=== PATIENT | female | born 2000 | race Caucasian/White ===

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

== ENCOUNTER → 2023-03-06 | Emergency (ER) | payer OTHER ==
--- OUTSIDE RECORDS SUMMARY | 2023-03-06 14:07 | XMS REPORT | Continuity of Care Document ---
Author Name Unknown Address [address] [facility] [address] [place] [id number] [facility] thconnect Address [address] [facility]. [address] [place] [address] Care Team Providers Care Automation Driver Name Role Phone Mine Goldberg Primary Care Physician JEET WAYNE Attending Clinician Unavailable Josee Pineda Attending Clinician + Terra Archer RN Attending Clinician Unavailab MAKEDA Longo Attending Clinician Unavailable Makeda West MD Attending Clinician [phone] JOSEE BILLY Attending Clinician Unavail able Doctor Unassigned, [place] Attending Clinician U gavinailable HELENA MELGAR Attending Clinician UnavailBHANU [place] Attending Clinician Unavaila ble LAB59 Attending Clinician Unavailable Lam May MD Attending Clinician LAM MAY Attending Clinician Unavailable Lab, Ang - Db Attending Clinician Unavailable KELLY VARGAS Attending Clinician Unavailable 2, [facility] Attending Clinician Unavailable EDMOND CHUN Attending Clinician Unavailable Payers Payer Name Policy Type Policy Number Effective Date Expirati on Date Source [facility] DUAL COMP HMO D SNP [id number] 2022 00:00:00 [facility] [place] STAR PLUS [id number] 2022 00:00:00 [employer] [place]OLD [place] 33 D-SNP OA 7 [id number] 2022 00:00:00 Problems Condition Name Condition Details Condition Category Status Onset Date Resolution Date Last Treatment Date Treating Clinician Comments Source Atypical squamous cells of undetermin ed significan ce (ASCUS) on Papanicola ou smear of cervix Atypical squamous cells of undetermin ed significan ce (ASCUS) on Papanicola ou smear of cervix Disease Active 09-09 00:00: 00 Overview: Formattin g of this note might be different from the original. Repeat pap in 1 year 09/2023 [facility] Other depression Other depression Disease Active 08-23 00:00: 00 [facility] Dysautonom ia Dysautonom ia Disease Active 08-23 00:00: 00 [facility] Subclinica l hypothyroi dism Subclinica l hypothyroi dism Disease Active 03-02 00:00: 00 Overview: Formattin g of this note might be different from the original. Dx 01/2013 [facility] Crohn's disease Crohn's disease Disease Active 2012-02 00:00: 00 [facility] Allergies, Adverse Reactions, Alerts Allergy Name Allergy Type Status Severity Reaction(s) Onset Date Inactive Date Treating Clinician Comments Source NO KNOWN ALLERGIE S Drug Class Active [facility] Social History Social Habit Start Date Stop Date Quantity Comments Source [facility] Exposure to SARS-CoV-2 (event) Not sure [facility] History of tobacco use Passive smoker Denisa mariano - External Tobacco use and exposure 2022-08-23 00:00:00 2022-08-23 00:00:00 Smokeless tobacco non-user [facility] Tobacco Comment 2022-08-23 00:00:00 2022-08-23 00:00:00 mom and dad smoke outside house [facility] History of Social function 2022-08-23 00:00:00 2022-08-23 00:00:00 [facility] Alcohol Comment 2022-08-23 00:00:00 2022-08-23 00:00:00 1-3 drinks in a span of 3 days, wine/beer [facility] Alcohol intake 2022-05-19 00:00:00 2022-05-19 00:00:00 Lifetime non-drinker (finding) Denisa Olivo Sex Assigned At 2000 00:00:00 2000 00:00:00 Denisa Olivo Smoking Status Start Date Stop Date Source Never smoked tobacco [facility] Medications Ordered Medication Name Filled Medication Name Start Date Stop Date Current Medication? Ordering Clinician Indication Dosage Frequency Signature (SIG) Comments Components Source Norethin-Et h Estrad-Fe Biphas (Lo Loestrin Fe) 1 MG-10 MCG / 10 MCG oral Tablet 05-19 00:00: 00 Yes [id number] 1{tbl} Take 1 tablet by mouth daily Denisa cardenas Carbamide Peroxide 6.5 % otic Solution 05-19 00:00: 00 05-24 04:59 :00 No [id number] 5[drp] Place 5 drops into both ears 2 times daily for 4 days Denisa cardenas Famotidine 40 MG oral Tablet 04-09 00:00: 00 Yes 40mg Take 1 tablet (40 mg total) by mouth daily Denisa cardenas levothyroxi ne 25 mcg tablet 2020-02 00:00: 00 Yes [id number] 25ug Take 1 tablet by mouth every morning. [facility] levothyroxi ne 25 mcg tablet 2020-02 00:00: 00 Yes [id number] 25ug Take 1 tablet by mouth every morning. [facility] levothyroxi ne 25 mcg tablet 2020-02 00:00: 00 Yes [id number] 25ug Take 1 tablet by mouth every morning. [facility] levothyroxi ne 25 mcg tablet 2020-02 00:00: 00 Yes [id number] 25ug Take 1 tablet by mouth every morning. [facility] levothyroxi ne 25 mcg tablet 2020-02 00:00: 00 Yes [id number] 25ug Take 1 tablet by mouth every morning. [facility] levothyroxi ne 25 mcg tablet 2020-02 00:00: 00 Yes [id number] 25ug Take 1 tablet by mouth every morning. [facility] levothyroxi ne 25 mcg tablet 2020-02 00:00: 00 Yes [id number] 25ug Take 1 tablet by mouth every morning. [facility] levothyroxi ne 25 mcg tablet 2020-02 00:00: 00 Yes [id number] 25ug Take 1 tablet by mouth every morning. [facility] levothyroxi ne 25 mcg tablet 2020-02 00:00: 00 Yes [id number] 25ug Take 1 tablet by mouth every morning. [facility] levothyroxi ne 25 mcg tablet 2020-02 00:00: 00 Yes [id number] 25ug Take 1 tablet by mouth every morning. [facility] levothyroxi ne 25 mcg tablet 2020-02 00:00: 00 Yes [id number] 25ug Take 1 tablet by mouth every morning. [facility] levothyroxi ne 25 mcg tablet 10-17 00:00: 00 02-03 00:00 :00 No [id number] 25ug Take 1 tablet by mouth every morning. [facility] LINZESS 145 mcg capsule 02-25 00:00: 00 Yes [facility] LINZESS 145 mcg capsule 02-25 00:00: 00 Yes [facility] LINZESS 145 mcg capsule 02-25 00:00: 00 Yes [facility] LINZESS 145 mcg capsule 2021-0 -19 00:00: 00 Yes [facility] LINZESS 145 mcg capsule 2021-0 1-19 00:00: 00 Yes [facility] LINZESS 145 mcg capsule 1-0 1-19 00:00: 00 Yes [facility] LINZESS 145 mcg capsule 1-0 1-19 00:00: 00 Yes [facility] LINZESS 145 mcg capsule 2021-0 1-19 00:00: 00 Yes [facility] LINZESS 145 mcg capsule 1-0 1-19 00:00: 00 Yes [facility] LINZESS 145 mcg capsule 1-0 - 00:00: 00 Yes [facility] LINZESS 145 mcg capsule 1-0 - 00:00: 00 Yes [facility] Immunizations Ordered Immunization Name Filled Immunization Name Date Status Comments Source Influenza Virus Vaccine 2012-01-13 00:00:00 Completed [facility] Influenza Virus Vaccine 2012-01-13 00:00:00 Completed [facility] Influenza Virus Vaccine 2012-01-13 00:00:00 Completed [facility] Influenza Virus Vaccine 2012-01-13 00:00:00 Completed [facility] Influenza Virus Vaccine 2012-01-13 00:00:00 Completed [facility] Influenza Virus Vaccine 2012-01-13 00:00:00 Completed [facility] Influenza Virus Vaccine 2012-01-13 00:00:00 Completed [facility] Influenza Virus Vaccine 2012-01-13 00:00:00 Completed [facility] Influenza Virus Vaccine 2012-01-13 00:00:00 Completed [facility] Influenza Virus Vaccine 2012-01-13 00:00:00 Completed [facility] Influenza Virus Vaccine 2009-11-07 00:00:00 Completed [facility] Influenza Virus Vaccine 2009-11-07 00:00:00 Completed [facility] Influenza Virus Vaccine 2009-11-07 00:00:00 Completed [facility] Influenza Virus Vaccine 2009-11-07 00:00:00 Completed [facility] Influenza Virus Vaccine 2009-11-07 00:00:00 Completed [facility] Influenza Virus Vaccine 2009-11-07 00:00:00 Completed [facility] Influenza Virus Vaccine 2009-11-07 00:00:00 Completed [facility] Influenza Virus Vaccine 2009-11-07 00:00:00 Completed [facility] Influenza Virus Vaccine 2009-11-07 00:00:00 Completed [facility] Influenza Virus Vaccine 2009-11-07 00:00:00 Completed [facility] Influenza Virus Vaccine 2007-11-29 00:00:00 Completed [facility] Influenza Virus Vaccine 2007-11-29 00:00:00 Completed [facility] Influenza Virus Vaccine 2007-11-29 00:00:00 Completed [facility] Influenza Virus Vaccine 2007-11-29 00:00:00 Completed [facility] Influenza Virus Vaccine 2007-11-29 00:00:00 Completed [facility] Influenza Virus Vaccine 2007-11-29 00:00:00 Completed [facility] Influenza Virus Vaccine 2007-11-29 00:00:00 Completed [facility] Influenza Virus Vaccine 2007-11-29 00:00:00 Completed [facility] Influenza Virus Vaccine 2007-11-29 00:00:00 Completed [facility] Influenza Virus Vaccine 2007-11-29 00:00:00 Completed [facility] Varicella (varivax)(chicken pox) 2007-05-16 00:00:00 Completed [facility] Varicella (varivax)(chicken pox) 2007-05-16 00:00:00 Completed [facility] Varicella (varivax)(chicken pox) 2007-05-16 00:00:00 Completed [facility] Varicella (varivax)(chicken pox) 2007-05-16 00:00:00 Completed [facility] Varicella (varivax)(chicken pox) 2007-05-16 00:00:00 Completed [facility] Varicella (varivax)(chicken pox) 2007-05-16 00:00:00 Completed [facility] Varicella (varivax)(chicken pox) 2007-05-16 00:00:00 Completed [facility] Varicella (varivax)(chicken pox) 2007-05-16 00:00:00 Completed [facility] Varicella (varivax)(chicken pox) 2007-05-16 00:00:00 Completed [facility] Varicella (varivax)(chicken pox) 2007-05-16 00:00:00 Completed [facility] HEPATITIS A 2006-09-13 00:00:00 Completed [facility] HEPATITIS A 2006-09-13 00:00:00 Completed [facility] HEPATITIS A 2006-09-13 00:00:00 Completed [facility] HEPATITIS A 2006-09-13 00:00:00 Completed [facility] HEPATITIS A 2006-09-13 00:00:00 Completed [facility] HEPATITIS A 2006-09-13 00:00:00 Completed [facility] HEPATITIS A 2006-09-13 00:00:00 Completed [facility] HEPATITIS A 2006-09-13 00:00:00 Completed [facility] HEPATITIS A 2006-09-13 00:00:00 Completed [facility] HEPATITIS A 2006-09-13 00:00:00 Completed [facility] DTAP 2005-09-30 00:00:00 Completed [facility] MMR 2005-09-30 00:00:00 Completed [facility] Polio (IPV/OPV) 2005-09-30 00:00:00 Completed [facility] DTAP 2005-09-30 00:00:00 Completed [facility] MMR 2005-09-30 00:00:00 Completed [facility] Polio (IPV/OPV) 2005-09-30 00:00:00 Completed [facility] DTAP 2005-09-30 00:00:00 Completed [facility] MMR 2005-09-30 00:00:00 Completed [facility] Polio (IPV/OPV) 2005-09-30 00:00:00 Completed [facility] DTAP 2005-09-30 00:00:00 Completed [facility] MMR 2005-09-30 00:00:00 Completed [facility] Polio (IPV/OPV) 2005-09-30 00:00:00 Completed [facility] DTAP 2005-09-30 00:00:00 Completed [facility] MMR 2005-09-30 00:00:00 Completed [facility] Polio (IPV/OPV) 2005-09-30 00:00:00 Completed [facility] DTAP 2005-09-30 00:00:00 Completed [facility] MMR 2005-09-30 00:00:00 Completed [facility] Polio (IPV/OPV) 2005-09-30 00:00:00 Completed [facility] DTAP 2005-09-30 00:00:00 Completed [facility] MMR 2005-09-30 00:00:00 Completed [facility] Polio (IPV/OPV) 2005-09-30 00:00:00 Completed [facility] DTAP 2005-09-30 00:00:00 Completed [facility] MMR 2005-09-30 00:00:00 Completed [facility] Polio (IPV/OPV) 2005-09-30 00:00:00 Completed [facility] DTAP 2005-09-30 00:00:00 Completed [facility] MMR 2005-09-30 00:00:00 Completed [facility] Polio (IPV/OPV) 2005-09-30 00:00:00 Completed [facility] DTAP 2005-09-30 00:00:00 Completed [facility] MMR 2005-09-30 00:00:00 Completed [facility] Polio (IPV/OPV) 2005-09-30 00:00:00 Completed [facility] HEPATITIS A 2005-05-27 00:00:00 Completed [facility] HEPATITIS A 2005-05-27 00:00:00 Completed [facility] HEPATITIS A 2005-05-27 00:00:00 Completed [facility] HEPATITIS A 2005-05-27 00:00:00 Completed [facility] HEPATITIS A 2005-05-27 00:00:00 Completed [facility] HEPATITIS A 2005-05-27 00:00:00 Completed [facility] HEPATITIS A 2005-05-27 00:00:00 Completed [facility] HEPATITIS A 2005-05-27 00:00:00 Completed [facility] HEPATITIS A 2005-05-27 00:00:00 Completed [facility] HEPATITIS A 2005-05-27 00:00:00 Completed [facility] DTAP 2002-11-07 00:00:00 Completed [facility] DTAP 2002-11-07 00:00:00 Completed [facility] DTAP 2002-11-07 00:00:00 Completed [facility] DTAP 2002-11-07 00:00:00 Completed [facility] DTAP 2002-11-07 00:00:00 Completed [facility] DTAP 2002-11-07 00:00:00 Completed [facility] DTAP 2002-11-07 00:00:00 Completed [facility] DTAP 2002-11-07 00:00:00 Completed [facility] DTAP 2002-11-07 00:00:00 Completed [facility] DTAP 2002-11-07 00:00:00 Completed [facility] HIB 4 Dose Schedule 2002-08-07 00:00:00 Completed [facility] MMR 2002-08-07 00:00:00 Completed [facility] Pneumococcal 7 Conjugate, PCV7 (Prevnar7) 2002-08-07 00:00:00 Completed [facility] Varicella (varivax)(chicken pox) 2002-08-07 00:00:00 Completed [facility] HIB 4 Dose Schedule 2002-08-07 00:00:00 Completed [facility] MMR 2002-08-07 00:00:00 Completed [facility] Pneumococcal 7 Conjugate, PCV7 (Prevnar7) 2002-08-07 00:00:00 Completed [facility] Varicella (varivax)(chicken pox) 2002-08-07 00:00:00 Completed [facility] HIB 4 Dose Schedule 2002-08-07 00:00:00 Completed [facility] MMR 2002-08-07 00:00:00 Completed [facility] Pneumococcal 7 Conjugate, PCV7 (Prevnar7) 2002-08-07 00:00:00 Completed [facility] Varicella (varivax)(chicken pox) 2002-08-07 00:00:00 Completed [facility] HIB 4 Dose Schedule 2002-08-07 00:00:00 Completed [facility] MMR 2002-08-07 00:00:00 Completed [facility] Pneumococcal 7 Conjugate, PCV7 (Prevnar7) 2002-08-07 00:00:00 Completed [facility] Varicella (varivax)(chicken pox) 2002-08-07 00:00:00 Completed [facility] HIB 4 Dose Schedule 2002-08-07 00:00:00 Completed [facility] MMR 2002-08-07 00:00:00 Completed [facility] Pneumococcal 7 Conjugate, PCV7 (Prevnar7) 2002-08-07 00:00:00 Completed [facility] Varicella (varivax)(chicken pox) 2002-08-07 00:00:00 Completed [facility] HIB 4 Dose Schedule 2002-08-07 00:00:00 Completed [facility] MMR 2002-08-07 00:00:00 Completed [facility] Pneumococcal 7 Conjugate, PCV7 (Prevnar7) 2002-08-07 00:00:00 Completed [facility] Varicella (varivax)(chicken pox) 2002-08-07 00:00:00 Completed [facility] HIB 4 Dose Schedule 2002-08-07 00:00:00 Completed [facility] MMR 2002-08-07 00:00:00 Completed [facility] Pneumococcal 7 Conjugate, PCV7 (Prevnar7) 2002-08-07 00:00:00 Completed [facility] Varicella (varivax)(chicken pox) 2002-08-07 00:00:00 Completed [facility] HIB 4 Dose Schedule 2002-08-07 00:00:00 Completed [facility] MMR 2002-08-07 00:00:00 Completed [facility] Pneumococcal 7 Conjugate, PCV7 (Prevnar7) 2002-08-07 00:00:00 Completed [facility] Varicella (varivax)(chicken pox) 2002-08-07 00:00:00 Completed [facility] HIB 4 Dose Schedule 2002-08-07 00:00:00 Completed [facility] MMR 2002-08-07 00:00:00 Completed [facility] Pneumococcal 7 Conjugate, PCV7 (Prevnar7) 2002-08-07 00:00:00 Completed [facility] Varicella (varivax)(chicken pox) 2002-08-07 00:00:00 Completed [facility] HIB 4 Dose Schedule 2002-08-07 00:00:00 Completed [facility] MMR 2002-08-07 00:00:00 Completed [facility] Pneumococcal 7 Conjugate, PCV7 (Prevnar7) 2002-08-07 00:00:00 Completed [facility] Varicella (varivax)(chicken pox) 2002-08-07 00:00:00 Completed [facility] Influenza Virus Vaccine 2002-02-27 00:00:00 Completed [facility] Influenza Virus Vaccine 2002-02-27 00:00:00 Completed [facility] Influenza Virus Vaccine 2002-02-27 00:00:00 Completed [facility] DTAP 2002-02-02 00:00:00 Completed [facility] HIB 4 Dose Schedule 2002-02-02 00:00:00 Completed [facility] Hep B, Adol or Pedi Dosage 2002-02-02 00:00:00 Completed [facility] Polio (IPV/OPV) 2002-02-02 00:00:00 Completed [facility] DTAP 2002-02-02 00:00:00 Completed [facility] HIB 4 Dose Schedule 2002-02-02 00:00:00 Completed [facility] Hep B, Adol or Pedi Dosage 2002-02-02 00:00:00 Completed [facility] Polio (IPV/OPV) 2002-02-02 00:00:00 Completed [facility] DTAP 2002-02-02 00:00:00 Completed [facility] HIB 4 Dose Schedule 2002-02-02 00:00:00 Completed [facility] Hep B, Adol or Pedi Dosage 2002-02-02 00:00:00 Completed [facility] Polio (IPV/OPV) 2002-02-02 00:00:00 Completed [facility] DTAP 2002-02-02 00:00:00 Completed [facility] HIB 4 Dose Schedule 2002-02-02 00:00:00 Completed [facility] Hep B, Adol or Pedi Dosage 2002-02-02 00:00:00 Completed [facility] Polio (IPV/OPV) 2002-02-02 00:00:00 Completed [facility] DTAP 2002-02-02 00:00:00 Completed [facility] HIB 4 Dose Schedule 2002-02-02 00:00:00 Completed [facility] Hep B, Adol or Pedi Dosage 2002-02-02 00:00:00 Completed [facility] Polio (IPV/OPV) 2002-02-02 00:00:00 Completed [facility] DTAP 2002-02-02 00:00:00 Completed [facility] HIB 4 Dose Schedule 2002-02-02 00:00:00 Completed [facility] Hep B, Adol or Pedi Dosage 2002-02-02 00:00:00 Completed [facility] Polio (IPV/OPV) 2002-02-02 00:00:00 Completed [facility] DTAP 2002-02-02 00:00:00 Completed [facility] HIB 4 Dose Schedule 2002-02-02 00:00:00 Completed [facility] Hep B, Adol or Pedi Dosage 2002-02-02 00:00:00 Completed [facility] Polio (IPV/OPV) 2002-02-02 00:00:00 Completed [facility] DTAP 2002-02-02 00:00:00 Completed [facility] HIB 4 Dose Schedule 2002-02-02 00:00:00 Completed [facility] Hep B, Adol or Pedi Dosage 2002-02-02 00:00:00 Completed [facility] Polio (IPV/OPV) 2002-02-02 00:00:00 Completed [facility] DTAP 2002-02-02 00:00:00 Completed [facility] HIB 4 Dose Schedule 2002-02-02 00:00:00 Completed [facility] Hep B, Adol or Pedi Dosage 2002-02-02 00:00:00 Completed [facility] Polio (IPV/OPV) 2002-02-02 00:00:00 Completed [facility] DTAP 2002-02-02 00:00:00 Completed [facility] HIB 4 Dose Schedule 2002-02-02 00:00:00 Completed [facility] Hep B, Adol or Pedi Dosage 2002-02-02 00:00:00 Completed [facility] Polio (IPV/OPV) 2002-02-02 00:00:00 Completed [facility] Influenza Virus Vaccine 2002-01-24 00:00:00 Completed [facility] Pneumococcal 7 Conjugate, PCV7 (Prevnar7) 2002-01-24 00:00:00 Completed [facility] Influenza Virus Vaccine 2002-01-24 00:00:00 Completed [facility] Pneumococcal 7 Conjugate, PCV7 (Prevnar7) 2002-01-24 00:00:00 Completed [facility] Influenza Virus Vaccine 2002-01-24 00:00:00 Completed [facility] Pneumococcal 7 Conjugate, PCV7 (Prevnar7) 2002-01-24 00:00:00 Completed [facility] Hep B, Adol or Pedi Dosage 2001 00:00:00 Completed [facility] Hep B, Adol or Pedi Dosage 2001 00:00:00 Completed [facility] Hep B, Adol or Pedi Dosage 2001 00:00:00 Completed [facility] Hep B, Adol or Pedi Dosage 2001 00:00:00 Completed [facility] Hep B, Adol or Pedi Dosage 2001 00:00:00 Completed [facility] Hep B, Adol or Pedi Dosage 2001 00:00:00 Completed [facility] Hep B, Adol or Pedi Dosage 2001 00:00:00 Completed [facility] Hep B, Adol or Pedi Dosage 2001 00:00:00 Completed [facility] Hep B, Adol or Pedi Dosage 2001 00:00:00 Completed [facility] Hep B, Adol or Pedi Dosage 2001 00:00:00 Completed [facility] DTAP 2001 00:00:00 Completed [facility] HIB 4 Dose Schedule 2001 00:00:00 Completed [facility] Pneumococcal 7 Conjugate, PCV7 (Prevnar7) 2001 00:00:00 Completed [facility] Polio (IPV/OPV) 2001 00:00:00 Completed [facility] DTAP 2001 00:00:00 Completed [facility] HIB 4 Dose Schedule 2001 00:00:00 Completed [facility] Pneumococcal 7 Conjugate, PCV7 (Prevnar7) 2001 00:00:00 Completed [facility] Polio (IPV/OPV) 2001 00:00:00 Completed [facility] DTAP 2001 00:00:00 Completed [facility] HIB 4 Dose Schedule 2001 00:00:00 Completed [facility] Pneumococcal 7 Conjugate, PCV7 (Prevnar7) 2001 00:00:00 Completed [facility] Polio (IPV/OPV) 2001 00:00:00 Completed [facility] DTAP 2001 00:00:00 Completed [facility] HIB 4 Dose Schedule 2001 00:00:00 Completed [facility] Pneumococcal 7 Conjugate, PCV7 (Prevnar7) 2001 00:00:00 Completed [facility] Polio (IPV/OPV) 2001 00:00:00 Completed [facility] DTAP 2001 00:00:00 Completed [facility] HIB 4 Dose Schedule 2001 00:00:00 Completed [facility] Pneumococcal 7 Conjugate, PCV7 (Prevnar7) 2001 00:00:00 Completed [facility] Polio (IPV/OPV) 2001 00:00:00 Completed [facility] DTAP 2001 00:00:00 Completed [facility] HIB 4 Dose Schedule 2001 00:00:00 Completed [facility] Pneumococcal 7 Conjugate, PCV7 (Prevnar7) 2001 00:00:00 Completed [facility] Polio (IPV/OPV) 2001 00:00:00 Completed [facility] DTAP 2001 00:00:00 Completed [facility] HIB 4 Dose Schedule 2001 00:00:00 Completed [facility] Pneumococcal 7 Conjugate, PCV7 (Prevnar7) 2001 00:00:00 Completed [facility] Polio (IPV/OPV) 2001 00:00:00 Completed [facility] DTAP 2001 00:00:00 Completed [facility] HIB 4 Dose Schedule 2001 00:00:00 Completed [facility] Pneumococcal 7 Conjugate, PCV7 (Prevnar7) 2001 00:00:00 Completed [facility] Polio (IPV/OPV) 2001 00:00:00 Completed [facility] DTAP 2001 00:00:00 Completed [facility] HIB 4 Dose Schedule 2001 00:00:00 Completed [facility] Pneumococcal 7 Conjugate, PCV7 (Prevnar7) 2001 00:00:00 Completed [facility] Polio (IPV/OPV) 2001 00:00:00 Completed [facility] DTAP 2001 00:00:00 Completed [facility] HIB 4 Dose Schedule 2001 00:00:00 Completed [facility] Pneumococcal 7 Conjugate, PCV7 (Prevnar7) 2001 00:00:00 Completed [facility] Polio (IPV/OPV) 2001 00:00:00 Completed [facility] Hep B, Adol or Pedi Dosage 2001 00:00:00 Completed [facility] Hep B, Adol or Pedi Dosage 2001 00:00:00 Completed [facility] Hep B, Adol or Pedi Dosage 2001 00:00:00 Completed [facility] Hep B, Adol or Pedi Dosage 2001 00:00:00 Completed [facility] Hep B, Adol or Pedi Dosage 2001 00:00:00 Completed [facility] Hep B, Adol or Pedi Dosage 2001 00:00:00 Completed [facility] Hep B, Adol or Pedi Dosage 2001 00:00:00 Completed [facility] Hep B, Adol or Pedi Dosage 2001 00:00:00 Completed [facility] Hep B, Adol or Pedi Dosage 2001 00:00:00 Completed [facility] Hep B, Adol or Pedi Dosage 2001 00:00:00 Completed [facility] HIB 4 Dose Schedule 2001 00:00:00 Completed [facility] Polio (IPV/OPV) 2001 00:00:00 Completed [facility] HIB 4 Dose Schedule 2001 00:00:00 Completed [facility] Polio (IPV/OPV) 2001 00:00:00 Completed [facility] HIB 4 Dose Schedule 2001 00:00:00 Completed [facility] Polio (IPV/OPV) 2001 00:00:00 Completed [facility] HIB 4 Dose Schedule 2001 00:00:00 Completed [facility] Polio (IPV/OPV) 2001 00:00:00 Completed [facility] HIB 4 Dose Schedule 2001 00:00:00 Completed [facility] Polio (IPV/OPV) 2001 00:00:00 Completed [facility] HIB 4 Dose Schedule 2001 00:00:00 Completed [facility] Polio (IPV/OPV) 2001 00:00:00 Completed [facility] HIB 4 Dose Schedule 2001 00:00:00 Completed [facility] Polio (IPV/OPV) 2001 00:00:00 Completed [facility] HIB 4 Dose Schedule 2001 00:00:00 Completed [facility] Polio (IPV/OPV) 2001 00:00:00 Completed [facility] HIB 4 Dose Schedule 2001 00:00:00 Completed [facility] Polio (IPV/OPV) 2001 00:00:00 Completed [facility] HIB 4 Dose Schedule 2001 00:00:00 Completed [facility] Polio (IPV/OPV) 2001 00:00:00 Completed [facility] DTAP 2001 00:00:00 Completed [facility] Pneumococcal 7 Conjugate, PCV7 (Prevnar7) 2001 00:00:00 Completed [facility] DTAP 2001 00:00:00 Completed [facility] Pneumococcal 7 Conjugate, PCV7 (Prevnar7) 2001 00:00:00 Completed [facility] DTAP 2001 00:00:00 Completed [facility] Pneumococcal 7 Conjugate, PCV7 (Prevnar7) 2001 00:00:00 Completed [facility] DTAP 2001 00:00:00 Completed [facility] Pneumococcal 7 Conjugate, PCV7 (Prevnar7) 2001 00:00:00 Completed [facility] DTAP 2001 00:00:00 Completed [facility] Pneumococcal 7 Conjugate, PCV7 (Prevnar7) 2001 00:00:00 Completed [facility] DTAP 2001 00:00:00 Completed [facility] Pneumococcal 7 Conjugate, PCV7 (Prevnar7) 2001 00:00:00 Completed [facility] DTAP 2001 00:00:00 Completed [facility] Pneumococcal 7 Conjugate, PCV7 (Prevnar7) 2001 00:00:00 Completed [facility] DTAP 2001 00:00:00 Completed [facility] Pneumococcal 7 Conjugate, PCV7 (Prevnar7) 2001 00:00:00 Completed [facility] DTAP 2001 00:00:00 Completed [facility] Pneumococcal 7 Conjugate, PCV7 (Prevnar7) 2001 00:00:00 Completed [facility] DTAP 2001 00:00:00 Completed [facility] Pneumococcal 7 Conjugate, PCV7 (Prevnar7) 2001 00:00:00 Completed [facility] DTAP Unknown Completed [facility] DTAP Unknown Completed [facility] DTAP Unknown Completed [facility] DTAP Unknown Completed [facility] DTAP Unknown Completed [facility] HIB 4 Dose Schedule Unknown Completed [facility] HIB 4 Dose Schedule Unknown Completed [facility] HIB 4 Dose Schedule Unknown Completed [facility] HIB 4 Dose Schedule Unknown Completed [facility] HEPATITIS A Unknown Completed [facility] HEPATITIS A Unknown Completed [facility] Hep B, Adol or Pedi Dosage Unknown Completed [facility] Hep B, Adol or Pedi Dosage Unknown Completed [facility] Hep B, Adol or Pedi Dosage Unknown Completed [facility] Influenza Virus Vaccine Unknown Completed [facility] Influenza Virus Vaccine Unknown Completed [facility] Influenza Virus Vaccine Unknown Completed [facility] MMR Unknown Completed [facility] MMR Unknown Completed [facility] Pneumococcal 7 Conjugate, PCV7 (Prevnar7) Unknown Completed [facility] Pneumococcal 7 Conjugate, PCV7 (Prevnar7) Unknown Completed [facility] Pneumococcal 7 Conjugate, PCV7 (Prevnar7) Unknown Completed [facility] Polio (IPV/OPV) Unknown Completed [facility] Polio (IPV/OPV) Unknown Completed [facility] Polio (IPV/OPV) Unknown Completed [facility] Polio (IPV/OPV) Unknown Completed [facility] Varicella (varivax)(chicken pox) Unknown Completed [facility] Varicella (varivax)(chicken pox) Unknown Completed [facility] Vital Signs Vital Name Observation Time Observation Value Comments S ource Systolic blood pressure 2022-08-24 03:07:00 121 mm[Hg] [facility] Diastolic blood pressure 2022-08-24 03:07:00 79 mm[Hg] [facility] acute hospital Heart rate 2022-08-24 03:07:00 76 /min [facility] Body temperature 2022-08-24 03:07:00 36.5 Isabel [facility] Respiratory rate 2022-08-24 03:07:00 18 /min [facility] Oxygen saturation in Arterial blood by Pulse oximetry 2022-08-24 03:07:00 100 /min [facility] acute hospital Body height 2022-08-23 21:09:00 162.6 cm [facility] Body weight 2022-08-23 21:09:00 44.906 kg [facility] BMI 2022-08-23 21:09:00 16.99 kg/m2 [facility] Systolic blood pressure 2022-08-23 19:23:00 127 mm[Hg] General acute hospital Diastolic blood pressure 2022-08-23 19:23:00 90 mm[Hg] General acute hospital Heart rate 2022-08-23 19:23:00 90 /min [facility] Body temperature 2022-08-23 19:23:00 36.61 Isabel [facility] Respiratory rate 2022-08-23 19:23:00 18 /min [facility] Body height 2022-08-23 19:23:00 162.6 cm [facility] Body weight 2022-08-23 19:23:00 45.269 kg [facility] BMI 2022-08-23 19:23:00 17.13 kg/m2 [facility] Systolic blood pressure 2022-05-19 15:18:00 108 mm[Hg] Denisa Seybo ld - External Diastolic blood pressure 2022-05-19 15:18:00 66 mm[Hg] Denisa Seybo ld - External Heart rate 2022-05-19 15:18:00 60 /min Kelse y Seybold - External Body temperature 2022-05-19 15:18:00 37 Isabel Denisa Seybold - External Respiratory rate 2022-05-19 15:18:00 18 /min Denisa Seybold - External Body height 2022-05-19 15:18:00 162.6 cm Willa ey Seybold - External Body weight 2022-05-19 15:18:00 48.535 kg Willa ey Seybold - External BMI 2022-05-19 15:18:00 18.37 kg/m2 Willa ey Seybold - External Oxygen saturation in Arterial blood by Pulse oximetry 2022-05-19 15:18:00 100 /min Denisa Seybo ld - External Procedures Procedure Date / Time Performed Performing Clinician Source URINE DRUG (IMMUNOASSAY) - COMPREHENSIVE DRUG SCREEN 2022-08-23 23:18:00 Makeda West [facility] URINALYSIS 2022-08-23 22:08:00 [facility] FREE T4 2022-08-23 21:49:00 Makeda West [facility] COMP. METABOLIC PANEL (74011) 2022-08-23 21:49:00 Makeda West [facility] ETHANOL 2022-08-23 21:49:00 Makeda West [facility] CBC WITH DIFF 2022-08-23 21:49:00 Makeda West [facility] COVID-19 (ID NOW RAPID TESTING) 2022-08-23 21:49:00 Makeda West [facility] NOTICE OF PRIVACY PRACTICES 2022-08-23 21:01:50 Doctor Unassigned, [place] [facility] CONSENT/REFUSAL FOR DIAGNOSIS AND TREATMENT 2022-08-23 21:00:11 Doctor Unassigned, [place] [facility] POCT TEST 2022-08-23 21:00:00 Johnny Billy [facility] PAP SMEAR-LIQUID BASED-CP 2022-08-23 20:56:00 Josee Billy [facility] HIV 1/2 AG-AB WITH REFLEX 2022-08-23 20:42:00 Josee Billy [facility] SYPHILIS IGG/IGM 2022-08-23 20:42:00 Basia Billy [facility] ASSIGNMENT OF BENEFITS 2022-08-23 18:57:19 Docto r Unassigned, [place] [facility] Encounters Start Date/Time End Date/Time Encounter Type Admission Type Attending Clinicians Care Facility Care Department Encounter ID Source 2022-10-08 13:00:00 2022-10-08 13:00:00 Outpatient JEET LINARES [facility] [id number] [facility] 2022-09-09 00:00:00 2022-09-09 00:00:00 Telephone Josee Billy [facility] 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 [facility] 1.2.840.114 350.1.13.10 4.2.7.2.686 [id number] [facility] 2022-08-30 00:00:00 2022-08-30 00:00:00 Patient Secure Msg Josee Billy [facility] 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 [facility] 1..114 350.1.13.10 4.2.7.2.686 [id number] [facility] 2022-08-24 00:00:00 2022-08-24 00:00:00 Letter (Out) Terra Archer [facility] 1..114 350.1.13.10 4.2.7.2.686 [id number] [facility] 2022-08-23 16:10:00 2022-08-23 22:15:00 Emergency X MAKEDA WEST [facility] ERT [id number] [facility] 2022-08-23 16:10:00 2022-08-23 22:15:00 Emergency Makeda eWst [facility] 1..114 350.1.13.10 4.2.7.2.686 [id number] [facility] 2022-08-23 14:30:00 2022-08-23 15:42:04 Outpatient R JOSEE BILLY [facility] [id number] [facility] 2022-08-23 14:30:00 2022-08-23 15:42:04 Office Visit Josee Billy [facility] 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 [facility] 1.84.114 350.1.13.10 4.2.7.2.686 [id number] [facility] 2022-08-23 00:00:00 2022-08-23 00:00:00 Orders Only Doctor Unassigned, [place] [facility] 1..114 350.1.13.10 4.2.7.2.686 [id number] [facility] 2022-08-13 11:00:00 2022-08-13 11:00:00 Outpatient HELENA MELGAR DENISA MORTENSEN [id number] [facility] 2022 00:00:00 2022 00:00:00 Outpatient DENISA DENISA [id number] Denisa [facility] 2022-07-19 00:00:00 2022-07-19 00:00:00 Outpatient HELENA MELGAR DENISA MORTENSEN [id number] [facility] 2022-07-01 00:00:00 2022-07-01 00:00:00 Outpatient DENISA MORTENSEN [id number] Denisa [facility] 2022-06-17 00:00:00 2022-06-17 00:00:00 Outpatient BHANU CRUZ DENISA MORTENSEN [id number] [facility] 2022-05-20 00:00:00 2022-05-20 00:00:00 Outpatient RAMÓNGENACHRISTINE MORTENSEN [id number] [facility] 2022-05-19 11:00:00 2022-05-19 11:00:00 Outpatient LAB59 DENISA MORTENSEN [id number] [facility] 2022-05-19 10:15:00 2022-05-19 10:15:00 Outpatient HELENA MELGAR DENISA MORTENSEN [id number] [facility] 2022-05-19 00:00:00 2022-05-19 00:00:00 Outpatient RAMÓNGENACHRISTINE MORTENSEN [id number] [facility] 2022-05-11 11:00:00 2022-05-11 11:00:00 Outpatient RAMÓNGENACHRISTINE MORTENSEN [id number] [facility] 2022-05-10 13:30:00 2022-05-10 13:30:00 Outpatient RAMÓNGENACHRISTINE MORTENSEN [id number] [facility] 2021-09-15 00:00:00 2021-09-15 00:00:[facility] 1.2.840.114 350.1.13.10 4.2.7.2.686 [id number] [facility] 2021-07-29 11:30:00 2021-07-29 11:30:00 Outpatient R YADIRA [facility] [id number] [facility] 2021-02-03 00:00:00 2021-02-03 00:00:00 Refill Yadira [facility] 1.2.840.114 350.1.13.10 4.2.7.2.686 [id number] [facility] 2021-01-27 15:00:00 2021-01-27 15:15:00 Clinical Coordinator Visit Lab, Jewel Leung Yadira [facility] 1.2.840.114 350.1.13.10 4.2.7.2.686 [id number] [facility] 2021-01-27 15:00:00 2021-01-27 15:01:02 Outpatient R YADIRA [facility] [id number] [facility] 2021-01-27 15:00:00 2021-01-27 15:01:02 Outpatient R MAY [facility] [id number] [facility] 2021-01-27 14:00:00 2021-01-27 14:53:42 Office Visit Yadira [facility] 1.2.840.114 350.1.13.10 4.2.7.2.686 [id number] [facility] 2020-11-14 11:30:00 2020-11-14 11:30:00 Outpatient R KELLY VARGAS [facility] [id number] [facility] 2020-10-15 13:30:00 2020-10-15 13:30:00 Outpatient R YADIRA [facility] [id number] [facility] 2020-10-15 00:00:00 2020-10-15 00:00:00 Refill Yadira [facility] 1.2.840.114 350.1.13.10 4.2.7.2.686 [id number] [facility] 2020-04-18 00:00:00 2020-04-18 00:00:00 [facility] 1.20.114 350.1.13.10 4.2.7.2.686 [id number] [facility] 2020-04-09 00:00:00 2020-04-09 00:00:00 Orders Only Doctor Unassigned, [place] [facility] 1.2.840.114 350.1.13.10 4.2.7.2.686 [id number] [facility] 2020-04-02 14:29:36 2020-04-02 14:44:36 Clinical Coordinator Visit 2, Adc Lab Yadira [facility] 1.2840.114 350.1.13.10 4.2.7.2.686 [id number] [facility] 2020-04-02 13:23:51 2020-04-02 14:21:49 Office Visit Yadira [facility] 1.2.840.114 350.1.13.10 4.2.7.2.686 [id number] 2020-04-02 13:23:51 2020-04-02 14:21:49 [facility].2840.114 350.1.13.10 4.2.7.2.686 [id number] [facility] 2020-04-02 13:30:00 2020-04-02 13:30:00 Outpatient LAM MOSS [facility] [id number] [facility] 2020-02-28 09:18:00 2020-02-28 23:59:00 Outpatient EDMOND CHUN [facility] [id number] [facility] 2020-02-22 09:00:00 2020-02-22 15:43:00 [facility] [id number] [facility] 2020-01-17 10:37:00 2020-01-17 23:59:00 [facility] [id number] [facility] Results Test Description Test Time Test Comments Results Result Co mments Source [id number] 22:42:51* Test Item Value Reference Range Interpretation Comme nts FREE T4 (test code = 0505902524) 0.92 See_Comment [Automated messa ge] The system which generated this result transmitted reference range: 0.78 - 2.20 ng/dL:. The reference range was not used to interpret this result as normal/abnormal. Lab Interpretation (test code = 28255-2) Normal [facility] 22:27:26 ALCOHOL<10mg/dL08/23/2022 5:27 PM [facility]<10 Arbtxydx38-178 Toxic>100 Depression of MILLINERY BLOCKER>400 Fatalities ReportedThe [facility]als of [facility] CampusCOMP. METABOLIC PANEL (37122)2022-08-23 22:26:30* Test Item Value Reference Range Interpretation Comme nts NA (test code = 6282334775) 140 mmol/L 135-145 K (test code = 3494559181) 4.2 mmol/L 3.5-5.0 CL (test code = 1796457672) 103 mmol/L 98-108 CO2 TOTAL (test code = 2999592524) 26 mmol/L 23-31 AGAP (test code = 4957982055) 11 2-16 BUN (test code = 1792851020) 12 mg/dL 7-23 GLUCOSE (test code = 5987424348) 114 mg/dL 70-110 H CREATININE (test code = 2932887630) 0.64 mg/dL 0.50-1.04 TOTAL BILI (test code = 9071482083) 0.6 mg/dL 0.1-1.1 CALCIUM (test code = 0575063610) 9.7 mg/dL 8.6-10.6 T PROTEIN (test code = 1887038997) 8.4 g/dL 6.3-8.2 H ALBUMIN (test code = 0195649774) 5.0 g/dL 3.5-5.0 ALK PHOS (test code = 3520340476) 44 U/L 34-122 ALTv (test code = 1742-6) 20 U/L 5-35 AST(SGOT) (test code = 6981617213) 25 U/L 13-40 eGFR (test code = 6009299414) 117.1 mL/min/1.73m2 THERESE (test code = THERESE) Association of Glomerular Filtration Rate (GFR) and Staging of Kidney Disease* + --+ --+ ------+| GFR (mL/min/1.73 m2) ?| With Kidney Damage ?| ?Without Kidney Damage+ --------+ --------+ +| ?>90 ?| ?Stage one ?| ? Normal ?+ ---+ ---+ -------+| ?60-89 ?| ?Stage two ?| ? Decreased GFR ? + --+ --+ ------+| ?30-59 ?| ?Stage three ?| ? Stage three ? + --+ --+ ------+| ?15-29 ?| ?Stage four ? | ? Stage four ?+ ---+ ---+ -------+| ?<15 (or dialysis) ? ?| ?Stage five ? | ? Stage five ?+ ---+ ---+ -------+ *Each stage assumes the associated GFR level has been in effect for at least three months. ?Stages 1 to 5, with or without kidney disease, indicate chronic kidney disease. Notes: Determination of stages one and two (with eGFR >59mL/min/1.73 m2) requires estimation of kidney damage for at least three months as defined by structural or functional abnormalities of the kidney, manifested by either:Pathological abnormalities or Markers of kidney damage (including abnormalities in the composition of the blood or urine or abnormalities in imaging tests). Lab Interpretation (test code = 85244-3) Abnormal General acute hospital [id number] 21:00:00* Test Item Value Reference Range Interpretation Comme nts POCT PREG (test code = 1605) Positive On board controls acceptable with C Line (test code = 3574) Yes POCT PREG LOT # (test code = 3575) POCT PREG TEST DATE ( test code = 3576) [facility] [id number] 21:00:00* Test Item Value Reference Range Interpretation Comme nts POCT PREG (test code = 1605) Positive On board controls acceptable with C Line (test code = 3574) Yes POCT PREG LOT # (test code = 3575) POCT PREG TEST DATE ( test code = 3576) [facility] Notes Date/Time Note Provider Source 2022-09-10 13:24:20 [id number] sFb7O/C1vel [id number]+T8BSLgEQz+ [id number]:24:20 Patient informed of results, verbalized understanding. 33561-4Ysjkywldt encounter [id number]:24:55Teleph one encounter NoteTXT1.2.840.301884.1.13.104. 2.7.2.583978|[id number] ble for patient [id number] adamaris Ramos [address] JhthFmwxjagboEheunkvhwPESU11339 29332GAWHVFGJNHZLWDVNJANEAD0952 -08-04T13:24:551.2.840.698576.1 .72.3.15|1.2.840.942859.1.13.10 4.2.7.2.727879_[id number] Viktoriya Ramos LVN [facility] 2022-09-10 09:29:10 Ssf/voYkpH6VTXz69t9C HRYgl+WNcGQ qucsqH+aCjaJY1A/ZZK5SDMwvLMi1vU za9553-71-83B99:29:10 Attempted to call patient, [place]. [address]-9Fnjosxzeh encounter RtolRY9508-16-98Z13:29:20Teleph one encounter NoteTXT1.2.840.363797.1.13.104. 2.7.2.589673|[id number] ble for patient neks49180-1PskyBR867968870Dpkzt adamaris Ramos [address] XcuxNodwdmcatIidwfdmhdLRMP16660 64150XWKUGBIKRUVWYXTPTFVTIO2449 -08-04T09:29:201.2.840.003550.1 .72.3.15|1.2.840.454152.1.13.10 4.2.7.2.727879_[id number] Viktoriya Ramos [facility] 2022-09-09 16:40:08 xlGaBeRoHbOw3/Gy3dff OCO+2tskSBm /UBLcDPplyOdjKipdYlx805ijEx/pv4 T+9177-94-57Y12:40:08 Please advise patient of pap results ASCUS pap per ASCCP guidelines she will need repeat pap in 1 year CARMELLA Zarate 09/09/2022 4:40 PM 08619-5Ijpnuezzy encounter ClpeVW1566-87-08Q83:40:52Teleph one encounter NoteTXT1.2.840.373274.1.13.104. 2.7.2.533148|[id number] ble for patient ipgk72203-4VxyiVSBISHJ[address] QlowDujxcvzbvBuhnjicefRSTH65099 92360ZLOAVPNHLRGUGYYMDBJFTD3881 -08-03T16:40:521.2.840.305265.1 .72.3.15|1.2.840.650633.1.13.10 [id number] [facility]"
--- NOTE | 2023-03-06 15:15 | EDPHYS ---
Physician Documentation [facility] Name: Selena To Age: 22 yrs Sex: Female : 2000 Arrival Date: 03/06/2023 Time: 14:00 Bed 11 Private MD: ED Physician Javier Cross HPI: 03/06 17:01 This 22 yrs old Female presents to ER via Ambulatory with complaints of Foreign Body In sb4 Eye. 17:01 The patient is experiencing foreign body sensation, to the right eye, caused by sb4 eyelash. Onset: The symptoms/episode began/occurred 3 day(s) ago. Patient wears glasses. The patient has not experienced similar symptoms in the past. The patient has not recently seen a physician. Historical: - Allergies: 14:32 No Known Drug Allergies; hb - Home Meds: 14:32 None [Active]; hb - PMHx: 14:32 Blind - Left Eye; Crohn's; Hypothyroidism; hb - PSHx: 14:32 None; hb - Immunization history:: Adult Immunizations up to date. - Social history:: Smoking status: Patient denies any tobacco usage or history of. ROS: 17:01 Constitutional: Negative for fever, chills, and weight loss, sb4 17:01 Eyes: Positive for foreign body sensation, 17:01 All other systems are negative, Exam: 17:01 Visual Acuity: Visual acuity is within normal limits. blind in left eye, sb4 17:01 Constitutional: This is a well developed, well nourished patient who is awake, alert, and in no acute distress. Head/Face: Normocephalic, atraumatic. Eyes: Extra-ocular motions intact. Periorbital areas with no swelling, redness, or edema. ENT: Mucous membranes moist. Skin: Warm, dry with normal turgor. Normal color with no rashes, no lesions, and no evidence of cellulitis. MS/ Extremity: Pulses equal, no cyanosis. Neurovascular intact. Full, normal range of motion. Neuro: Awake and alert, GCS 15, oriented to person, place, time, and situation. Motor strength 5/5 in all extremities. Sensory grossly intact. Vital Signs: 14:27 BP 127 / 77; Pulse 87; Resp 16; Temp 98.3; Pulse Ox 100% on R/A; Weight 46.72 kg; hb Height 5 ft. 4 in. ; Pain 02/16; 14:27 Body Mass Index 17.68 (46.72 kg, 162.56 cm) hb 14:27 Pain Scale: Adult hb Procedures: 17:01 Foreign Body Removal: eyelash, from the left eye, conjunctiva by using a cotton-tipped sb4 swab, Dressing: none, The patient tolerated the removal well. MDM: 14:36 Patient medically screened. sb4 17:01 Data reviewed: vital signs, nurses notes, and as a result, I will discharge patient. sb4 Counseling: I had a detailed discussion with the patient and/or guardian regarding the historical points, exam findings, and any diagnostic results supporting the discharge/admit diagnosis, to return to the emergency department if symptoms worsen or persist or if there are any questions or concerns that arise at home. Administered Medications: No medications were administered Disposition: 17:37 Co-signature as Attending Physician, Javier Cross MD I reviewed the patient's care rt provided by the Advanced Practice Provider and agree with the diagnosis and treatment plan. Disposition Summary: 03/06/23 15:14 Discharge Ordered Notes: Location: Home sb4 Problem: an ongoing problem sb4 Symptoms: are resolved sb4 Condition: Stable sb4 Diagnosis - Foreign body in cornea, right eye - resolved(03/06/23 15:14) sb4 Followup: sb4 - With: Rodolfo Cameron MD - When: As needed - Reason: Recheck today's complaints, Re-evaluation by your physician Discharge Instructions: - Discharge Summary Sheet sb4 - Eye Foreign Body, Hjvw-eb-Agxp sb4 Forms: - Medication Reconciliation Form sb4 - Thank You Letter sb4 - Antibiotic Education sb4 - Prescription Opioid Use sb4 - Patient Portal Instructions sb4 - Leadership Thank You Letter sb4 Signatures: Donna Marie RN RN hb Slawson, Ashby, RN RN as6 Anisa Holland PA-C PASunny sb4 Javier Cross MD MD rt Corrections: (The following items were deleted from the chart) 15:14 15:14 Foreign body in cornea, right eye sb4 sb4
--- NOTE | 2023-03-06 15:15 | ER ---
Nurse's Notes [facility] Name: Selena To Age: 22 yrs Sex: Female : 2000 Arrival Date: 03/06/2023 Time: 14:00 Bed 11 Private MD: Diagnosis: Foreign body in cornea, right eye-resolved Presentation: 03/06 14:27 Chief complaint: Eyelash in right eye x 3 days. Coronavirus screen: At this time, the hb client does not indicate any symptoms associated with coronavirus-19. Ebola Screen: No symptoms or risks identified at this time. Initial Sepsis Screen: Does the patient meet any 2 criteria? No. Patient's initial sepsis screen is negative. Does the patient have a suspected source of infection? No. Patient's initial sepsis screen is negative. Risk Assessment: Do you want to hurt yourself or someone else? Patient reports no desire to harm self or others. Onset of symptoms was March 04, 2023. 14:27 Method Of Arrival: Ambulatory hb 14:27 Acuity: BETTINA 4 hb Historical: - Allergies: 14:32 No Known Drug Allergies; hb - Home Meds: 14:32 None [Active]; hb - PMHx: 14:32 Blind - Left Eye; Crohn's; Hypothyroidism; hb - PSHx: 14:32 None; hb - Immunization history:: Adult Immunizations up to date. - Social history:: Smoking status: Patient denies any tobacco usage or history of. Screenin:18 [facility] ED Fall Risk Assessment (Adult) Score/Fall Risk Level 0 - 2 = Low Risk. Abuse as6 screen: Denies threats or abuse. Denies injuries from another. Nutritional screening: No deficits noted. Tuberculosis screening: No symptoms or risk factors identified. Assessment: 15:17 General: Appears in no apparent distress. Behavior is calm, cooperative. Pain: as6 Complains of pain in right eye. Respiratory: Respiratory effort is even, unlabored. EENT: Eyes with foreign body noted in inner aspect of conjuctiva of right eye eyelash in right eye. Vital Signs: 14:27 BP 127 / 77; Pulse 87; Resp 16; Temp 98.3; Pulse Ox 100% on R/A; Weight 46.72 kg; hb Height 5 ft. 4 in. ; Pain 1/10; 14:27 Body Mass Index 17.68 (46.72 kg, 162.56 cm) hb 14:27 Pain Scale: Adult hb ED Course: 14:03 Patient arrived in ED. mr 14:30 Triage completed. hb 14:33 Arm band placed on. hb 14:36 Anisa Holland PA-C is PHCP. sb4 14:36 Javier Cross MD is Attending Physician. sb4 15:14 Rodolfo Cameron MD is Referral Physician. sb4 15:18 Bed in low position. Call light in reach. Provided Education on: follow up. as6 15:18 No provider procedures requiring assistance completed. Patient did not have IV access as6 during this emergency room visit. Administered Medications: No medications were administered Medication: 15:18 VIS not applicable for this client. as6 Outcome: 15:14 Discharge ordered by . sb4 15:18 Discharged to home ambulatory, as6 15:18 Condition: stable 15:18 Discharge instructions given to patient, Instructed on discharge instructions, follow up and referral plans. Demonstrated understanding of instructions, follow-up care, 15:19 Patient left the ED. as6 Signatures: Salma Campbell, Reg Reg mr MarieDonna, RN RN Dano Cortez RN RN as6 Anisa Holland PA-C PA-C sb4
[2023-03-06 17:47] VITALS: BP 127/77; TEMP 98.3; O2SAT 100
== END ==
LOC: ER 14:00
PROC: 08C8XZZ Extirpation of Matter from Right Cornea, External Approach (ICD-10-PCS; principal; 2023-03-06)
DX: T15.01XA Foreign body in cornea, right eye, initial encounter (principal)

== ENCOUNTER 2024-09-22 13:01 | Emergency (ER) | payer OTHER ==
--- OUTSIDE RECORDS SUMMARY | 2024-09-22 13:05 | XMS REPORT | Continuity of Care Document ---
Author Name Unknown Address [address] [facility] [place] [address] [facility] Address [address] [place] [address] Care Team Providers Care Medical Transcriber Name Role Phone Mine Goldberg Primary Care Physician Lam May MD Attending Clinician JEET WAYNE Attending Clinician Unavailable Josee Pineda Attending Clinician + Terra Archer RN Attending Clinician Unavailab MAKEDA Longo Attending Clinician Unavailable Makeda West MD Attending Clinician JOSEE BILLY Attending Clinician Unavail able Doctor Unassigned, [facility] Attending Clinician U navailable HELENA MELGAR Attending Clinician Unavailabl e BHANU CRUZ Attending Clinician Unavaila ble [id number] Attending Clinician Unavailable Lam May MD Attending Clinician LAM MAY Attending Clinician Unavailable Lab, Ang - Db Attending Clinician Unavailable KELLY VARGAS Attending Clinician Unavailable 2, [facility] Attending Clinician Unavailable EDMOND CHUN Attending Clinician Unavailable Payers Payer Name Policy Type Policy Number Effective Date Expirati on Date Source [facility] DUAL COMP HMO D SNP [id number] 2022 00:00:00 [facility] [place] STAR PLUS [id number] 2022 00:00:00 [employer] [place] GOLD PLUS 33 D-SNP OA 7 [id number] 2022 00:00:00 Problems Condition Name Condition Details [...] original. Repeat pap in 1 year 09/2023 [facility] Other depression Other depression Disease Active 08-23 00:00: 00 [facility] Dysautonom ia Dysautonom ia Disease Active 08-23 00:00: 00 [facility] Subclinica l hypothyroi dism Subclinica l hypothyroi dism Disease Active 03-02 00:00: 00 Overview: Formattin g of this note might be different from the original. Dx 01/2013 [facility] Crohn's disease Crohn's disease Disease Active 2012-02 00:00: 00 [facility] Allergies, Adverse Reactions, Alerts Allergy Name Allergy Type Status Severity Reaction(s) Onset Date Inactive Date Treating Clinician Comments Source NO KNOWN ALLERGIE S Drug Class Active [facility] Social History Social Habit Start Date Stop Date Quantity Comments Source Gender identity [facility] [place] [place] [facility] Not [facility] History of tobacco use Passive smoker Denisa mariano - External History of Social function 2022-08-23 00:00:00 2022-08-23 00:00:00 [facility] Alcohol Comment 2022-08-23 00:00:00 2022-08-23 00:00:00 1-3 drinks in a span of 3 days, wine/beer [facility] Tobacco use and exposure 2022-05-19 00:00:00 2022-05-19 00:00:00 Smokeless tobacco non-user Denisa Barrientos - External Alcohol intake 2022-05-19 00:00:00 2022-05-19 00:00:00 Lifetime non-drinker (finding) Denisa Barrientos - External Exposure to SARS-CoV-2 (event) 2020-12-28 00:00:00 2021-01-27 14:16:00 Not sure [facility] Alcoholic beverage intake 2020-04-02 00:00:00 2020-04-02 00:00:00 Current non-drinker of alcohol (finding) [facility] Tobacco Comment 2012-09-08 00:00:00 2012-09-08 00:00:00 mom and dad smoke outside house [facility] Sex Assigned At 2001 00:00:00 2000 00:00:00 Denisa Barrientos - External Smoking Status Start Date Stop Date Source Never smoked tobacco Denisa Barrientos - External Medications Ordered Medication Name Filled Medication Name Start Date Stop Date Current Medication? Ordering Clinician Indication Dosage Frequency Signature (SIG) Comments Components Source Norethin-Et h Estrad-Fe Biphas (Lo Loestrin Fe) 1 MG-10 MCG / 10 MCG oral Tablet 05-19 00:00: 00 Yes [id number] 1{tbl} Take 1 tablet by mouth daily Denisa cardenas Carbamide Peroxide 6.5 % otic Solution 05-19 00:00: 00 05-24 04:59 :00 No [id number] 5[drp] Place 5 drops into both ears 2 times daily for 4 days Denisa cardenas Famotidine 40 MG oral Tablet 3-03 00:00: 00 Yes 40mg Take 1 tablet (40 mg total) by mouth daily Denisa Seybold - Externa l levothyroxi ne 25 mcg tablet 2020-02 00:00: 00 Yes [id number] 25ug Take 1 tablet by mouth every morning. [facility] levothyroxi ne 25 mcg tablet - 00:00: 00 02-03 00:00 :00 No [id number] 25ug Take 1 tablet by mouth every morning. [facility] levothyroxi ne 25 mcg tablet -12 00:00: 00 10-17 00:00 :00 No 25ug Take 1 tablet by mouth every morning. [facility] LINZESS 145 mcg capsule 1-19 00:00: 00 Yes [facility] Immunizations Ordered Immunization Name Filled Immunization Name Date Status Comments Source Influenza Virus Vaccine 2012-01-13 00:00:00 Completed [facility] Influenza Virus Vaccine 2012-01-13 00:00:00 Completed [facility] Influenza Virus Vaccine 2012-01-13 00:00:00 Completed [facility] Influenza Virus Vaccine 2012-01-13 00:00:00 Completed [facility] Influenza Virus Vaccine 2012-01-13 00:00:00 Completed [facility] Influenza Virus Vaccine 2012-01-13 00:00:00 Completed [facility] Influenza Virus Vaccine 2012-01-13 00:00:00 Completed [facility] Influenza Virus Vaccine 2012-01-13 00:00:00 Completed Influenza Virus Vaccine 2009-11-07 00:00:00 Completed [facility] Influenza Virus Vaccine 2009-11-07 00:00:00 Completed [facility] Influenza Virus Vaccine 2009-11-07 00:00:00 Completed [facility] Influenza Virus Vaccine 2009-11-07 00:00:00 Completed [facility] Influenza Virus Vaccine 2009-11-07 00:00:00 Completed [facility] Influenza Virus Vaccine 2009-11-07 00:00:00 Completed [facility] Influenza Virus Vaccine 2009-11-07 00:00:00 Completed [facility] Influenza Virus Vaccine 2009-11-07 00:00:00 Completed Influenza Virus Vaccine 2007-11-29 00:00:00 Completed [facility] Influenza Virus Vaccine 2007-11-29 00:00:00 Completed [facility] Influenza Virus Vaccine 2007-11-29 00:00:00 Completed [facility] Influenza Virus Vaccine 2007-11-29 00:00:00 Completed [facility] Influenza Virus Vaccine 2007-11-29 00:00:00 Completed [facility] Influenza Virus Vaccine 2007-11-29 00:00:00 Completed [facility] Influenza Virus Vaccine 2007-11-29 00:00:00 Completed [facility] Influenza Virus Vaccine 2007-11-29 00:00:00 Completed Varicella (varivax)(chicken pox) 2007-05-16 00:00:00 Completed [facility] Varicella (varivax)(chicken pox) 2007-05-16 00:00:00 Completed [facility] Varicella (varivax)(chicken pox) 2007-05-16 00:00:00 Completed [facility] Varicella (varivax)(chicken pox) 2007-05-16 00:00:00 Completed [facility] Varicella (varivax)(chicken pox) 2007-05-16 00:00:00 Completed [facility] Varicella (varivax)(chicken pox) 2007-05-16 00:00:00 Completed [facility] Varicella (varivax)(chicken pox) 2007-05-16 00:00:00 Completed [facility] Varicella (varivax)(chicken pox) 2007-05-16 00:00:00 Completed HEPATITIS A 2006-09-13 00:00:00 Completed [facility] HEPATITIS A 2006-09-13 00:00:00 Completed [facility] HEPATITIS A 2006-09-13 00:00:00 Completed [facility] HEPATITIS A 2006-09-13 00:00:00 Completed [facility] HEPATITIS A 2006-09-13 00:00:00 Completed [facility] HEPATITIS A 2006-09-13 00:00:00 Completed [facility] HEPATITIS A 2006-09-13 00:00:00 Completed [facility] HEPATITIS A 2006-09-13 00:00:00 Completed DTAP 2005-09-30 00:00:00 Completed [facility] MMR 2005-09-30 00:00:00 Completed [facility] Polio (IPV/OPV) 2005-09-30 00:00:00 Completed [facility] DTAP 2005-09-30 00:00:00 Completed [facility] MMR 2005-09-30 00:00:00 Completed [facility] Polio (IPV/OPV) 2005-09-30 00:00:00 Completed [facility] DTAP 2005-09-30 00:00:00 Completed [facility] MMR 2005-09-30 00:00:00 Completed [facility] Polio (IPV/OPV) 2005-09-30 00:00:00 Completed [facility] DTAP 2005-09-30 00:00:00 Completed [facility] MMR 2005-09-30 00:00:00 Completed [facility] Polio (IPV/OPV) 2005-09-30 00:00:00 Completed [facility] DTAP 2005-09-30 00:00:00 Completed [facility] MMR 2005-09-30 00:00:00 Completed [facility] Polio (IPV/OPV) 2005-09-30 00:00:00 Completed [facility] DTAP 2005-09-30 00:00:00 Completed [facility] MMR 2005-09-30 00:00:00 Completed [facility] Polio (IPV/OPV) 2005-09-30 00:00:00 Completed [facility] DTAP 2005-09-30 00:00:00 Completed [facility] MMR 2005-09-30 00:00:00 Completed [facility] Polio (IPV/OPV) 2005-09-30 00:00:00 Completed [facility] DTAP 2005-09-30 00:00:00 Completed MMR 2005-09-30 00:00:00 Completed Polio (IPV/OPV) 2005-09-30 00:00:00 Completed HEPATITIS A 2005-05-27 00:00:00 Completed [facility] HEPATITIS A 2005-05-27 00:00:00 Completed [facility] HEPATITIS A 2005-05-27 00:00:00 Completed [facility] HEPATITIS A 2005-05-27 00:00:00 Completed [facility] HEPATITIS A 2005-05-27 00:00:00 Completed [facility] HEPATITIS A 2005-05-27 00:00:00 Completed [facility] HEPATITIS A 2005-05-27 00:00:00 Completed [facility] HEPATITIS A 2005-05-27 00:00:00 Completed DTAP 2002-11-07 00:00:00 Completed [facility] DTAP 2002-11-07 00:00:00 Completed [facility] DTAP 2002-11-07 00:00:00 Completed [facility] DTAP 2002-11-07 00:00:00 Completed [facility] DTAP 2002-11-07 00:00:00 Completed [facility] DTAP 2002-11-07 00:00:00 Completed [facility] DTAP 2002-11-07 00:00:00 Completed [facility] DTAP 2002-11-07 00:00:00 Completed HIB 4 Dose Schedule 2002-08-07 00:00:00 Completed [facility] MMR 2002-08-07 00:00:00 Completed [facility] Pneumococcal 7 Conjugate, PCV7 (Prevnar7) 2002-08-07 00:00:00 Completed [facility] Varicella (varivax)(chicken pox) 2002-08-07 00:00:00 Completed [facility] HIB 4 Dose Schedule 2002-08-07 00:00:00 Completed [facility] MMR 2002-08-07 00:00:00 Completed [facility] Pneumococcal 7 Conjugate, PCV7 (Prevnar7) 2002-08-07 00:00:00 Completed [facility] Varicella (varivax)(chicken pox) 2002-08-07 00:00:00 Completed [facility] HIB 4 Dose Schedule 2002-08-07 00:00:00 Completed [facility] MMR 2002-08-07 00:00:00 Completed [facility] Pneumococcal 7 Conjugate, PCV7 (Prevnar7) 2002-08-07 00:00:00 Completed [facility] Varicella (varivax)(chicken pox) 2002-08-07 00:00:00 Completed [facility] HIB 4 Dose Schedule 2002-08-07 00:00:00 Completed [facility] MMR 2002-08-07 00:00:00 Completed [facility] Pneumococcal 7 Conjugate, PCV7 (Prevnar7) 2002-08-07 00:00:00 Completed [facility] Varicella (varivax)(chicken pox) 2002-08-07 00:00:00 Completed [facility] HIB 4 Dose Schedule 2002-08-07 00:00:00 Completed [facility] MMR 2002-08-07 00:00:00 Completed [facility] Pneumococcal 7 Conjugate, PCV7 (Prevnar7) 2002-08-07 00:00:00 Completed [facility] Varicella (varivax)(chicken pox) 2002-08-07 00:00:00 Completed [facility] HIB 4 Dose Schedule 2002-08-07 00:00:00 Completed [facility] MMR 2002-08-07 00:00:00 Completed [facility] Pneumococcal 7 Conjugate, PCV7 (Prevnar7) 2002-08-07 00:00:00 Completed [facility] Varicella (varivax)(chicken pox) 2002-08-07 00:00:00 Completed [facility] HIB 4 Dose Schedule 2002-08-07 00:00:00 Completed [facility] MMR 2002-08-07 00:00:00 Completed [facility] Pneumococcal 7 Conjugate, PCV7 (Prevnar7) 2002-08-07 00:00:00 Completed [facility] Varicella (varivax)(chicken pox) 2002-08-07 00:00:00 Completed [facility] HIB 4 Dose Schedule 2002-08-07 00:00:00 Completed MMR 2002-08-07 00:00:00 Completed Pneumococcal 7 Conjugate, PCV7 (Prevnar7) 2002-08-07 00:00:00 Completed Varicella (varivax)(chicken pox) 2002-08-07 00:00:00 Completed Influenza Virus Vaccine 2002-02-27 00:00:00 Completed [facility] Influenza Virus Vaccine 2002-02-27 00:00:00 Completed [facility] DTAP 2002-02-02 00:00:00 Completed [facility] HIB 4 Dose Schedule 2002-02-02 00:00:00 Completed [facility] Hep B, Adol or Pedi Dosage 2002-02-02 00:00:00 Completed [facility] Polio (IPV/OPV) 2002-02-02 00:00:00 Completed [facility] DTAP 2002-02-02 00:00:00 Completed [facility] HIB 4 Dose Schedule 2002-02-02 00:00:00 Completed [facility] Hep B, Adol or Pedi Dosage 2002-02-02 00:00:00 Completed [facility] Polio (IPV/OPV) 2002-02-02 00:00:00 Completed [facility] DTAP 2002-02-02 00:00:00 Completed [facility] HIB 4 Dose Schedule 2002-02-02 00:00:00 Completed [facility] Hep B, Adol or Pedi Dosage 2002-02-02 00:00:00 Completed [facility] Polio (IPV/OPV) 2002-02-02 00:00:00 Completed [facility] DTAP 2002-02-02 00:00:00 Completed [facility] HIB 4 Dose Schedule 2002-02-02 00:00:00 Completed [facility] Hep B, Adol or Pedi Dosage 2002-02-02 00:00:00 Completed [facility] Polio (IPV/OPV) 2002-02-02 00:00:00 Completed [facility] DTAP 2002-02-02 00:00:00 Completed [facility] HIB 4 Dose Schedule 2002-02-02 00:00:00 Completed [facility] Hep B, Adol or Pedi Dosage 2002-02-02 00:00:00 Completed [facility] Polio (IPV/OPV) 2002-02-02 00:00:00 Completed [facility] DTAP 2002-02-02 00:00:00 Completed [facility] HIB 4 Dose Schedule 2002-02-02 00:00:00 Completed [facility] Hep B, Adol or Pedi Dosage 2002-02-02 00:00:00 Completed [facility] Polio (IPV/OPV) 2002-02-02 00:00:00 Completed [facility] DTAP 2002-02-02 00:00:00 Completed [facility] HIB 4 Dose Schedule 2002-02-02 00:00:00 Completed [facility] Hep B, Adol or Pedi Dosage 2002-02-02 00:00:00 Completed [facility] Polio (IPV/OPV) 2002-02-02 00:00:00 Completed [facility] DTAP 2002-02-02 00:00:00 Completed HIB 4 Dose Schedule 2002-02-02 00:00:00 Completed Hep B, Adol or Pedi Dosage 2002-02-02 00:00:00 Completed Polio (IPV/OPV) 2002-02-02 00:00:00 Completed Influenza Virus Vaccine 2002-01-24 00:00:00 Completed [facility] Pneumococcal 7 Conjugate, PCV7 (Prevnar7) 2002-01-24 00:00:00 Completed [facility] Influenza Virus Vaccine 2002-01-24 00:00:00 Completed [facility] Pneumococcal 7 Conjugate, PCV7 (Prevnar7) 2002-01-24 00:00:00 Completed [facility] Hep B, Adol or Pedi Dosage 2001 00:00:00 Completed [facility] Hep B, Adol or Pedi Dosage 2001 00:00:00 Completed [facility] Hep B, Adol or Pedi Dosage 2001 00:00:00 Completed [facility] Hep B, Adol or Pedi Dosage 2001 00:00:00 Completed [facility] Hep B, Adol or Pedi Dosage 2001 00:00:00 Completed [facility] Hep B, Adol or Pedi Dosage 2001 00:00:00 Completed [facility] Hep B, Adol or Pedi Dosage 2001 00:00:00 Completed [facility] Hep B, Adol or Pedi Dosage 2001 00:00:00 Completed DTAP 2001 00:00:00 Completed [facility] HIB 4 Dose Schedule 2001 00:00:00 Completed [facility] Pneumococcal 7 Conjugate, PCV7 (Prevnar7) 2001 00:00:00 Completed [facility] Polio (IPV/OPV) 2001 00:00:00 Completed [facility] DTAP 2001 00:00:00 Completed [facility] HIB 4 Dose Schedule 2001 00:00:00 Completed [facility] Pneumococcal 7 Conjugate, PCV7 (Prevnar7) 2001 00:00:00 Completed [facility] Polio (IPV/OPV) 2001 00:00:00 Completed [facility] DTAP 2001 00:00:00 Completed [facility] HIB 4 Dose Schedule 2001 00:00:00 Completed [facility] Pneumococcal 7 Conjugate, PCV7 (Prevnar7) 2001 00:00:00 Completed [facility] Polio (IPV/OPV) 2001 00:00:00 Completed [facility] DTAP 2001 00:00:00 Completed [facility] HIB 4 Dose Schedule 2001 00:00:00 Completed [facility] Pneumococcal 7 Conjugate, PCV7 (Prevnar7) 2001 00:00:00 Completed [facility] Polio (IPV/OPV) 2001 00:00:00 Completed [facility] DTAP 2001 00:00:00 Completed [facility] HIB 4 Dose Schedule 2001 00:00:00 Completed [facility] Pneumococcal 7 Conjugate, PCV7 (Prevnar7) 2001 00:00:00 Completed [facility] Polio (IPV/OPV) 2001 00:00:00 Completed [facility] DTAP 2001 00:00:00 Completed [facility] HIB 4 Dose Schedule 2001 00:00:00 Completed [facility] Pneumococcal 7 Conjugate, PCV7 (Prevnar7) 2001 00:00:00 Completed [facility] Polio (IPV/OPV) 2001 00:00:00 Completed [facility] DTAP 2001 00:00:00 Completed [facility] HIB 4 Dose Schedule 2001 00:00:00 Completed [facility] Pneumococcal 7 Conjugate, PCV7 (Prevnar7) 2001 00:00:00 Completed [facility] Polio (IPV/OPV) 2001 00:00:00 Completed [facility] DTAP 2001 00:00:00 Completed HIB 4 Dose Schedule 2001 00:00:00 Completed Pneumococcal 7 Conjugate, PCV7 (Prevnar7) 2001 00:00:00 Completed Polio (IPV/OPV) 2001 00:00:00 Completed Hep B, Adol or Pedi Dosage 2001 00:00:00 Completed [facility] Hep B, Adol or Pedi Dosage 2001 00:00:00 Completed [facility] Hep B, Adol or Pedi Dosage 2001 00:00:00 Completed [facility] Hep B, Adol or Pedi Dosage 2001 00:00:00 Completed [facility] Hep B, Adol or Pedi Dosage 2001 00:00:00 Completed [facility] Hep B, Adol or Pedi Dosage 2001 00:00:00 Completed [facility] Hep B, Adol or Pedi Dosage 2001 00:00:00 Completed [facility] Hep B, Adol or Pedi Dosage 2001 00:00:00 Completed HIB 4 Dose Schedule 2001 00:00:00 Completed [facility] Polio (IPV/OPV) 2001 00:00:00 Completed [facility] HIB 4 Dose Schedule 2001 00:00:00 Completed [facility] Polio (IPV/OPV) 2001 00:00:00 Completed [facility] HIB 4 Dose Schedule 2001 00:00:00 Completed [facility] Polio (IPV/OPV) 2001 00:00:00 Completed [facility] HIB 4 Dose Schedule 2001 00:00:00 Completed [facility] Polio (IPV/OPV) 2001 00:00:00 Completed [facility] HIB 4 Dose Schedule 2001 00:00:00 Completed [facility] Polio (IPV/OPV) 2001 00:00:00 Completed [facility] HIB 4 Dose Schedule 2001 00:00:00 Completed [facility] Polio (IPV/OPV) 2001 00:00:00 Completed [facility] HIB 4 Dose Schedule 2001 00:00:00 Completed [facility] Polio (IPV/OPV) 2001 00:00:00 Completed [facility] HIB 4 Dose Schedule 2001 00:00:00 Completed Polio (IPV/OPV) 2001 00:00:00 Completed DTAP 2001 00:00:00 Completed [facility] Pneumococcal 7 Conjugate, PCV7 (Prevnar7) 2001 00:00:00 Completed [facility] DTAP 2001 00:00:00 Completed [facility] Pneumococcal 7 Conjugate, PCV7 (Prevnar7) 2001 00:00:00 Completed [facility] DTAP 2001 00:00:00 Completed [facility] Pneumococcal 7 Conjugate, PCV7 (Prevnar7) 2001 00:00:00 Completed [facility] DTAP 2001 00:00:00 Completed [facility] Pneumococcal 7 Conjugate, PCV7 (Prevnar7) 2001 00:00:00 Completed [facility] DTAP 2001 00:00:00 Completed [facility] Pneumococcal 7 Conjugate, PCV7 (Prevnar7) 2001 00:00:00 Completed [facility] DTAP 2001 00:00:00 Completed [facility] Pneumococcal 7 Conjugate, PCV7 (Prevnar7) 2001 00:00:00 Completed [facility] DTAP 2001 00:00:00 Completed [facility] Pneumococcal 7 Conjugate, PCV7 (Prevnar7) 2001 00:00:00 Completed [facility] DTAP 2001 00:00:00 Completed Pneumococcal 7 Conjugate, PCV7 (Prevnar7) 2001 00:00:00 Completed DTAP Unknown Completed [facility] HIB 4 Dose Schedule Unknown Completed [facility] HEPATITIS A Unknown Completed [facility] Hep B, Adol or Pedi Dosage Unknown Completed [facility] Influenza Virus Vaccine Unknown Completed [facility] MMR Unknown Completed [facility] Pneumococcal 7 Conjugate, PCV7 (Prevnar7) Unknown Completed [facility] Polio (IPV/OPV) Unknown Completed [facility] Varicella (varivax)(chicken pox) Unknown Completed [facility] Vital Signs Vital Name Observation Time Observation Value Comments S ource Systolic blood pressure 2022-08-24 03:07:00 121 mm[Hg] [facility] Diastolic blood pressure 2022-08-24 03:07:00 79 mm[Hg] [facility] Heart rate 2022-08-24 03:07:00 76 /min [facility] Body temperature 2022-08-24 03:07:00 36.5 Isabel [facility] Respiratory rate 2022-08-24 03:07:00 18 /min [facility] Oxygen saturation in Arterial blood by Pulse oximetry 2022-08-24 03:07:00 100 /min [facility] Body height 2022-08-23 21:09:00 162.6 cm [facility] Body weight 2022-08-23 21:09:00 44.906 kg [facility] BMI 2022-08-23 21:09:00 16.99 kg/m2 [facility] Systolic blood pressure 2022-08-23 19:23:00 127 mm[Hg] [facility] Diastolic blood pressure 2022-08-23 19:23:00 90 mm[Hg] [facility] Heart rate 2022-08-23 19:23:00 90 /min Unive [facility] Body temperature 2022-08-23 19:23:00 36.61 Isabel [facility] Respiratory rate 2022-08-23 19:23:00 18 /min [facility] Body height 2022-08-23 19:23:00 162.6 cm [facility] Body weight 2022-08-23 19:23:00 45.269 kg [facility] BMI 2022-08-23 19:23:00 17.13 kg/m2 [facility] Systolic blood pressure 2022-05-19 15:18:00 108 mm[Hg] Denisa Padrono ld - External Diastolic blood pressure 2022-05-19 15:18:00 66 mm[Hg] Denisa Padrono ld - External Heart rate 2022-05-19 15:18:00 60 /min Kel y Seybold - External Body temperature 2022-05-19 15:18:00 37 Isabel Denisa Seybold - External Respiratory rate 2022-05-19 15:18:00 18 /min Denisa Mcknightybold - External Body height 2022-05-19 15:18:00 162.6 cm Willa ey Seybold - External Body weight 2022-05-19 15:18:00 48.535 kg Willa ey Seybold - External BMI 2022-05-19 15:18:00 18.37 kg/m2 Willa jennifer Seybold - External Oxygen saturation in Arterial blood by Pulse oximetry 2022-05-19 15:18:00 100 /min Denisa Casillas ld - External Procedures Procedure Date / Time Performed Performing Clinician Source URINE DRUG (IMMUNOASSAY) - COMPREHENSIVE DRUG SCREEN 2022-08-23 23:18:00 Makeda West [facility] URINALYSIS 2022-08-23 22:08:00 Makeda [facility] FREE T4 2022-08-23 21:49:00 Makeda [facility] COMP. METABOLIC PANEL ([id number]) 2022-08-23 21:49:00 Makeda West [facility] ETHANOL 2022-08-23 21:49:00 Makeda [facility] CBC WITH DIFF 2022-08-23 21:49:00 Makeda West [facility] COVID-19 (ID NOW RAPID TESTING) 2022-08-23 21:49:00 Makeda West [facility] NOTICE OF PRIVACY PRACTICES 2022-08-23 21:01:50 Doctor Unassigned, [facility] CONSENT/REFUSAL FOR DIAGNOSIS AND TREATMENT 2022-08-23 21:00:11 Doctor Unassigned, [facility] POCT TEST 2022-08-23 21:00:00 Johnny Billy [facility] PAP SMEAR-LIQUID BASED-CP 2022-08-23 20:56:00 Josee Billy [facility] HIV 1/2 AG-AB WITH REFLEX 2022-08-23 20:42:00 Josee Billy [facility] SYPHILIS IGG/IGM 2022-08-23 20:42:00 Basia Billy [facility] ASSIGNMENT OF BENEFITS 2022-08-23 18:57:19 Docto r Unassigned, [facility] Encounters Start Date/Time End Date/Time Encounter Type Admission Type Attending Clinicians Care Facility Care Department Encounter ID Source 2020-10-10 00:00:00 2024-05-31 21:44:28 Refill Lam May [facility] 1.840.114 350.1.13.10 4.2.7.2.686 [id number] [facility] 2022-10-08 13:00:00 2022-10-08 13:00:00 Outpatient JEET LINARES [facility] [id number] [facility] 2022-09-09 00:00:00 2022-09-09 00:00:00 Telephone Josee Billy [facility] 1..840.114 350.1.13.10 4.2.7.2.686 [id number] [facility] 2022-08-30 00:00:00 2022-08-30 00:00:00 Patient Secure Msg Josee Billy [facility] 1..840.114 350.1.13.10 4.2.7.2.686 [id number] [facility] 2022-08-24 00:00:00 2022-08-24 00:00:00 Letter (Out[facility] 1.2840.114 350.1.13.10 4.2.7.2.686 [id number] [facility] 2022-08-23 16:10:00 2022-08-23 22:15:00 Emergency X MAKEDA [facility] ERT [id number] [facility] 2022-08-23 16:10:00 2022-08-23 22:15:00 Emergency Brett Makeda [facility] 1.2840.114 350.1.13.10 4.2.7.2.686 [id number] [facility] 2022-08-23 14:30:00 2022-08-23 15:42:04 Outpatient R JOSEE BILLY [facility] [id number] [facility] 2022-08-23 14:30:00 2022-08-23 15:42:04 Office Visit Josee Billy [facility] 1.2840.114 350.1.13.10 4.2.7.2.686 [id number] [facility] 2022-08-23 00:00:00 2022-08-23 00:00:00 Orders Only Doctor Unassigned, [facility] 1.2840.114 350.1.13.10 4.2.7.2.686 [id number] [facility] 2022-08-13 11:00:00 2022-08-13 11:00:00 Outpatient HELENA MELGAR [id number] Denisa [facility] 2022 00:00:00 2022 00:00:00 Outpatient DENISA MORTENSEN [id number] Denisa [facility] 2022-07-19 00:00:00 2022-07-19 00:00:00 Outpatient HELENA MELGAR [id number] [facility] 2022-07-01 00:00:00 2022-07-01 00:00:00 Outpatient DENISA MORTENSEN [id number] Denisa [facility] 2022-06-17 00:00:00 2022-06-17 00:00:00 Outpatient BHANU CRUZ DENISA MORTENSEN [id number] Denisa [facility] 2022-05-20 00:00:00 2022-05-20 00:00:00 Outpatient RAMÓN HELENA DENISA MORTENSEN [id number] [facility] 2022-05-19 11:00:00 2022-05-19 11:00:00 Outpatient DANNY59 DENISA MORTENSEN [id number] Denisa [facility] 2022-05-19 10:15:00 2022-05-19 10:15:00 Outpatient RAMÓN HELENACHRISTINE MORTENSEN [id number] [facility] 2022-05-19 00:00:00 2022-05-19 00:00:00 Outpatient RAMÓN HELENACHRISTINE MORTENSEN [id number] [facility] 2022-05-11 11:00:00 2022-05-11 11:00:00 Outpatient RAMÓNHELENA RICHARDSON DENISA MORTENSEN [id number] [facility] 2022-05-10 13:30:00 2022-05-10 13:30:00 Outpatient RAMÓN HELENA DENISA MORTENSEN [id number] [facility] 2021-09-15 00:00:00 2021-09-15 00:00:00 Refvilma May [facility] 1.2.840.114 350.1.13.10 4.2.7.2.686 [id number] [facility] 2021-07-29 11:30:00 2021-07-29 11:30:00 Outpatient Alena MAY [facility] [id number] [facility] 2021-02-03 00:00:00 2021-02-03 00:00:00 Refvilma May [facility] 1..840.114 350.1.13.10 4.2.7.2.686 [id number] [facility] 2021-01-27 15:00:00 2021-01-27 15:15:00 Registered Dietician Visit Lab, Ang - Db Yadira [facility] RAFY?[facility] 1..840.114 350.1.13.10 4.2.7.2.686 [id number] [facility] 2021-01-27 15:00:00 2021-01-27 15:01:02 Outpatient R YADIRA [facility] [id number] [facility] 2021-01-27 15:00:00 2021-01-27 15:01:02 Outpatient R YADIRA [facility] [id number] [facility] 2021-01-27 14:00:00 2021-01-27 14:53:42 Office Visit Yadira [facility] RAFY?[facility] 1..840.114 350.1.13.10 4.2.7.2.686 [id number] [facility] 2020-11-14 11:30:00 2020-11-14 11:30:00 Outpatient R KELLY VARGAS [facility] [id number] [facility] 2020-10-15 13:30:00 2020-10-15 13:30:00 Outpatient R MAY [facility] [id number] [facility] 2020-10-15 00:00:00 2020-10-15 00:00:00 Refill Yadira [facility] Rafy?[facility] 1..840.114 350.1.13.10 4.2.7.2.686 [id number] [facility] 2020-04-18 00:00:00 2020-04-18 00:00:00 Telephone Yadira [facility] 1.2.840.114 350.1.13.10 4.2.7.2.686 [id number] [facility] 2020-04-09 00:00:00 2020-04-09 00:00:00 Orders Only Doctor Unassigned, [facility] 1.2.840.114 350.1.13.10 4.2.7.2.686 [id number] [facility] 2020-04-02 14:29:36 2020-04-02 14:44:36 Registered Dietician Visit 2, Adc Lab Yadira [facility] Building 1.2.840.114 350.1.13.10 4.2.7.2.686 [id number] [facility] 2020-04-02 13:23:51 2020-04-02 14:21:49 Office Visit Yadira [facility] Building 1.2.840.114 350.1.13.10 4.2.7.2.686 [id number] [facility] 2020-04-02 13:23:51 2020-04-02 14:21:49 Office Visit Yadira [facility] Building 1.2.840.114 350.1.13.10 4.2.7.2.686 [id number] 2020-04-02 13:30:00 2020-04-02 13:30:00 Outpatient R YADIRA [facility] [id number] [facility] 2020-02-28 09:18:00 2020-02-28 23:59:00 Outpatient EDMOND CHUN [facility] [id number] [facility] 2020-02-22 09:00:00 2020-02-22 15:43:00 Outpatient EDMOND CHUN [facility] [id number] [facility] 2020-01-17 10:37:00 2020-01-17 23:59:00 Outpatient EDMOND CHUN [facility] [id number] [facility] Results Test Description Test Time Test Comments Results Result Co mments Source [id number] 22:42:51* Test Item Value Reference Range Interpretation Comme nts FREE T4 (test code = 2691615830) 0.92 See_Comment [Automated Didatuana ge] The system which generated this result transmitted reference range: 0.78 - 2.20 ng/dL:. The reference range was not used to interpret this result as normal/abnormal. Lab Interpretation (test code = 37578-0) Normal [facility] 22:27:26 ALCOHOL<10mg/dL08/23/2022 5:27 [facility] Odxzmnzi02-335 Toxic>100 Depression of [employer]>400 [facility] METABOLIC PANEL ([id number])2022-08-23 22:26:30* Test Item Value Reference Range Interpretation Comme nts NA (test code = 7260265813) 140 mmol/L 135-145 K (test code = 9242496664) 4.2 mmol/L 3.5-5.0 CL (test code = 1787591471) 103 mmol/L 98-108 CO2 TOTAL (test code = 1836345292) 26 mmol/L 23-31 AGAP (test code = 7889467673) 11 2-16 BUN (test code = 2691995601) 12 mg/dL 7-23 GLUCOSE (test code = 2531550721) 114 mg/dL 70-110 H CREATININE (test code = 0699544120) 0.64 mg/dL 0.50-1.04 TOTAL BILI (test code = 5914157575) 0.6 mg/dL 0.1-1.1 CALCIUM (test code = 7440897910) 9.7 mg/dL 8.6-10.6 T PROTEIN (test code = 2719829869) 8.4 g/dL 6.3-8.2 H ALBUMIN (test code = 8378795779) 5.0 g/dL 3.5-5.0 ALK PHOS (test code = 8796557247) 44 U/L 34-122 ALTv (test code = 1742-6) 20 U/L 5-35 AST(SGOT) (test code = 3346151574) 25 U/L 13-40 eGFR (test code = 8283840292) 117.1 mL/min/1.73m2 THERESE (test code = THERESE) [...] imaging tests). Lab Interpretation (test code = 74446-0) Abnormal [facility] [id number] 21:00:00* Test Item Value Reference Range Interpretation Comme [facility] POCT PREG (test code = 1605) Positive On board controls acceptable with C Line (test code = 3574) Yes POCT PREG LOT # (test code = 3575) POCT PREG TEST DATE ( test code = 3576) [facility] [id number] 21:00:00* Test Item Value Reference Range Interpretation Comme [facility] POCT PREG (test code = 1605) Positive On board controls acceptable with C Line (test code = 3574) Yes POCT PREG LOT # (test code = 3575) POCT PREG TEST DATE ( test code = 3576) [facility] Notes Date/Time Note Provider Source 2022-09-10 13:24:20 Formatting of this n ote might be different from the original. Patient informed of results, verbalized understanding. Viktoriya Ramos APPLICATION ADMINISTRATOR [facility] 2022-09-10 09:29:10 Formatting of this n ote might be different from the original. Attempted to call patient, no answer, left vm. Viktoriya Ramos APPLICATION ADMINISTRATOR [facility] 2022-09-09 16:40:08 Formatting of this n ote might be different from the original. Please advise patient of pap results ASCUS pap per ASCCP guidelines she will need repeat pap in 1 year CARMELLA Zarate 09/09/2022 4:40 PM [facility] 2020-10-14 12:22:18 Patient is scheduled with Dr May/[facility] on Tuesday-10/15/2020 at 1:30pm. Jayda Clark [facility] 2020-10-14 11:38:13 JEFF: 04/02/2020 NOV: NONE scheduled Refill denied, needs office visit. Johnnie Arzate RN [facility]"
[2024-09-22] MEDS ORDERED: NA CHLORIDE 0.9% 1,000 ML ONE (13:58)
[2024-09-22 14:45] LABS: Absolute Lymphocytes (CBC) 1.6 K/uL (0.7-4.9); Hematocrit 44.2 % (36.0-45.0); Hemoglobin 14.5 g/dL (12.0-15.0); MCH 28.3 pg (27.0-35.0); MCHC 32.9 g/dL (32.0-36.0); MCV 86.1 fL (80-100); MPV 8.4 fL (7.6-11.3); Nucleated RBC Absolute Count 0.0 (0-0); Nucleated Red Blood Cells % 0.0 % (0-0); RBC Red Blood Cell Count 5.13 M/uL (3.86-4.86); White Blood Count 5.70 thou/uL (4.3-10.9)
[2024-09-22 14:53] LABS: Influenza A Ag Negative; Influenza B Ag Negative; SARS-CoV-2 Antigen Rapid Res Negative (Negative)
[2024-09-22 14:59] LABS: PT Prothrombin Time 13.4 SECONDS (10-13.0); Protime INR 1.19
[2024-09-22 15:02] LABS: D-Dimer < 0.215 FEUug/mL (0-0.500)
--- NOTE | 2024-09-22 15:16 | RAD REPORT ---
Procedure: Chest Single View HISTORY: Chest pain COMPARISON: August 2024 FINDINGS: The lungs appear clear of acute infiltrate. No significant pleural effusion noted. The heart is normal size. IMPRESSION: No acute abnormality is displayed.
[2024-09-22 15:23] LABS: ALT/SGPT 25 U/L (13-56); AST/SGOT 26 U/L (15-37); Albumin 4.3 g/dL (3.4-5.0); Albumin/Globulin Ratio 1.2 (1.1-1.8); Alkaline Phosphatase 47 U/L (45-117); Anion Gap 8.3 mEq/L (5.0-15.0); BUN Blood Urea Nitrogen 13 mg/dL (7-18); Bilirubin Indirect, Calculated 0.6 mg/dL (0.2-0.8); Globulin 3.5 g/dL (2.3-3.5); Glucose Level 138 mg/dL (74-106); Magnesium 2.2 mg/dL (1.6-2.4); NT PRO-BNP 33 pg/mL (<125); Potassium 4.3 mEq/L (3.5-5.1); Thyroid Stimulating Hormone 3.470 uIU/mL (0.358-3.740); Troponin High Sensitivity < 3.0 pg/mL (<58.9)
--- NOTE | 2024-09-22 15:47 | EDPHYS ---
Physician Documentation [facility] Name: Selena To Age: 24 yrs Sex: Female : 2000 Arrival Date: 09/22/2024 Time: 13:01 Bed 14 Private MD: ED Physician Zahida Rodriguez HPI: 09/22 14:21 This 24 yrs old Female presents to ER via EMS with complaints of Palpitations. sb4 14:21 Patient states that she woke up feeling generally unwell. She reports palpitations, sb4 weakness, 10 pound weight loss over unknown amount of time, decreased appetite. Has a history of anemia, hypothyroidism, Crohn's, dysautonomia but does not take any medications on a daily basis. Reports a slight pain in her chest and abdomen. Endorses nausea. Denies any vomiting or diarrhea. Denies any fever or chills. 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 - Infectious Disease History:: Denies. - Social history:: Smoking status: Reported history of juuling and/or vaping. ROS: 14:21 Respiratory: Negative for shortness of breath, cough, wheezing, and pleuritic chest sb4 pain, 14:21 Constitutional: Positive for poor PO intake, weight loss, 14:21 Cardiovascular: Positive for palpitations, 14:21 Abdomen/GI: Positive for nausea, 14:21 All other systems are negative, Exam: 14:22 Head/Face: Normocephalic, atraumatic. Eyes: Extra-ocular motions intact. Periorbital sb4 areas with no swelling, redness, or edema. ENT: Mucous membranes moist. Cardiovascular: Regular rate and rhythm with a normal S1 and S2. Respiratory: No increased work of breathing, no retractions or nasal flaring. Abdomen/GI: Soft, non-tender, no distension. Skin: Warm, dry with normal turgor. Normal color with no rashes, no lesions, and no evidence of cellulitis. 14:22 Constitutional: The patient appears alert, awake, frail, Vital Signs: 13:09 BP 117 / 81; Pulse 71; Resp 15; Temp 97.7; Pulse Ox 99% on R/A; Weight 42.64 kg; Height ar8 5 ft. 4 in. ; Pain 1/10; 15:27 BP 122 / 80; Pulse 84; Resp 17 S; Pulse Ox 100% on R/A; kc6 13:09 Body Mass Index 16.13 (42.64 kg, 162.56 cm) ar8 13:09 Pain Scale: Adult ar8 MDM: 13:10 Medical Screening Exam initiated sb4 15:46 Data reviewed: vital signs, nurses notes, EMS record, lab test result(s), EKG, sb4 radiologic studies, and as a result, I will discharge patient. Counseling: I had a detailed discussion with the patient and/or guardian regarding the historical points, exam findings, and any diagnostic results supporting the discharge/admit diagnosis, lab results, radiology results, the need for outpatient follow up, for definitive care, to return to the emergency department if symptoms worsen or persist or if there are any questions or concerns that arise at home. 09/22 14:03 Order name: Basic Metabolic Panel; Complete Time: 15:24 sb4 09/22 14:03 Order name: CBC with Diff; Complete Time: 14:48 sb4 09/22 14:03 Order name: D-Dimer; Complete Time: 15:03 sb4 09/22 14:03 Order name: LFT's; Complete Time: 15:24 sb4 09/22 14:03 Order name: Magnesium; Complete Time: 15:24 sb4 09/22 14:03 Order name: NT PRO-BNP; Complete Time: 15:24 sb4 09/22 14:03 Order name: PT-INR; Complete Time: 15:03 sb4 09/22 14:03 Order name: Troponin HS; Complete Time: 15:24 sb4 09/22 14:03 Order name: TSH; Complete Time: 15:24 sb4 09/22 14:03 Order name: COVID-19 Ag + Flu A+B Ag; Complete Time: 14:55 sb4 09/22 14:03 Order name: XRAY Chest (1 view); Complete Time: 15:17 sb4 09/22 14:03 Order name: EKG; Complete Time: 14:04 sb4 09/22 14:03 Order name: Cardiac monitoring; Complete Time: 14:32 sb4 09/22 14:03 Order name: EKG - Nurse/Tech; Complete Time: 14:32 sb4 09/22 14:03 Order name: IV Saline Lock; Complete Time: 14:32 sb4 09/22 14:03 Order name: Labs collected and sent; Complete Time: 14:32 sb4 09/22 14:03 Order name: O2 Per Protocol; Complete Time: 14:04 sb4 09/22 14:03 Order name: O2 Sat Monitoring; Complete Time: 14:04 sb4 09/22 15:24 Order name: PO challenge; Complete Time: 15:27 sb4 EC:15 Rate is 60 beats/min. Rhythm is regular, Sinus arrythmia. [place] interval is normal at 130 sb4 msec. QRS interval is normal at 84 msec. QT interval is normal at 412 msec. No Q waves. T waves are Normal. No ST changes noted. Clinical impression: Sinus arrythmia. Interpreted by me. Reviewed by me. Administered Medications: 14:32 Drug: NS 0.9% IV 1000 ml IV at 1 bolus Per protocol; to be given as a bolus over 60 kc6 minutes Route: IV; Rate: 1 bolus; Site: right wrist; 16:50 Follow up: Response: No adverse reaction; IV Status: Completed infusion; IV Intake: kc6 1000ml Disposition Summary: 09/22/24 15:47 Discharge Ordered Notes: Location: Home sb4 Problem: new sb4 Symptoms: have improved sb4 Condition: Stable sb4 Diagnosis - Palpitations sb4 - Other malaise and fatigue sb4 Followup: sb4 - With: Private Physician - When: 1 week - Reason: Further diagnostic work-up, Recheck today's complaints, Re-evaluation by your physician Discharge Instructions: - Discharge Summary Sheet sb4 - Palpitations sb4 - Fatigue sb4 Forms: - Patient Portal Instructions sb4 - Leadership Thank You Letter sb4 Signatures: Dispatcher [employer] Thais Stover RN RN kc6 Anisa Holland PASunny PASunny sb4 Shai Wong RN RN ar8
--- NOTE | 2024-09-22 15:47 | ER ---
Nurse's Notes [facility] Name: Selena To Age: 24 yrs Sex: Female : 2000 Arrival Date: 09/22/2024 Time: 13:01 Bed 14 Private MD: Diagnosis: Palpitations;Other malaise and fatigue Presentation: 09/22 13:09 Chief complaint: Patient states: C/O decreased nutritional intake, weakness, SOB, ar8 palpitations and brain fog x3 days. Coronavirus screen: At this time, the client does not indicate any symptoms associated with coronavirus-19. Ebola Screen: No symptoms or risks identified at this time. Initial Sepsis Screen: Does the patient meet any 2 criteria? No. Patient's initial sepsis screen is negative. Does the patient have a suspected source of infection? No. Patient's initial sepsis screen is negative. Risk Assessment: Do you want to hurt yourself or someone else? Patient reports no desire to harm self or others. Onset of symptoms was September 19, 2024. 13:09 Method Of Arrival: EMS: [facility] ar8 13:09 Acuity: BETTINA 3 ar8 Triage Assessment: 13:13 General: Appears in no apparent distress. Behavior is calm, cooperative, appropriate ar8 for age. Pain: Complains of pain in chest Pain currently is 1 out of 10 on a pain scale. 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 - Infectious Disease History:: Denies. - Social history:: Smoking status: Reported history of juuling and/or vaping. Screenin:33 [facility] ED Fall Risk Assessment (Adult) History of falling in the last 3 months, kc6 including since admission No falls in past 3 months (0 pts) Confusion or Disorientation No (0 pts) Intoxicated or Sedated No (0 pts) Impaired Gait No (0 pts) Mobility Assist Device Used No (0 pt) Altered Elimination No (0 pt) Score/Fall Risk Level 0 - 2 = Low Risk Oriented to surroundings. Abuse screen: Denies threats or abuse. Denies injuries from another. Nutritional screening: No deficits noted. Tuberculosis screening: No symptoms or risk factors identified. Assessment: 14:15 General: Appears in no apparent distress. comfortable, slender, well groomed, Behavior kc6 is calm, cooperative, appropriate for age, quiet. Neuro: Level of Consciousness is awake, alert, obeys commands, Oriented to person, place, time, situation, Appropriate for age. Cardiovascular: Reports palpitations. Respiratory: Reports shortness of breath Airway is patent Trachea midline Respiratory effort is even, unlabored, Respiratory pattern is regular, symmetrical, Breath sounds are clear bilaterally. : No signs and/or symptoms were reported regarding the genitourinary system. Derm: No signs and/or symptoms reported regarding the dermatologic system. Skin is intact, is healthy with good turgor, Skin is pink, warm \T\ dry. Musculoskeletal: No signs and/or symptoms reported regarding the musculoskeletal system. Circulation, motion, and sensation intact. Range of motion: intact in all extremities. 14:15 Pain: Denies pain. GI: Reports anorexia, Patient currently denies abdominal pain, kc6 diarrhea, nausea, vomiting. EENT: No signs and/or symptoms were reported regarding the EENT system. 15:15 Reassessment: Patient appears in no apparent distress at this time. No changes from kc6 previously documented assessment. Patient and/or family updated on plan of care and expected duration. Pain level reassessed. Patient is alert, oriented x 3, equal unlabored respirations, skin warm/dry/pink. 16:50 Reassessment: Patient appears in no apparent distress at this time. No changes from kc6 previously documented assessment. Patient and/or family updated on plan of care and expected duration. Pain level reassessed. Patient is alert, oriented x 3, equal unlabored respirations, skin warm/dry/pink. Vital Signs: 13:09 BP 117 / 81; Pulse 71; Resp 15; Temp 97.7; Pulse Ox 99% on R/A; Weight 42.64 kg; Height ar8 5 ft. 4 in. ; Pain 1/10; 15:27 BP 122 / 80; Pulse 84; Resp 17 S; Pulse Ox 100% on R/A; kc6 13:09 Body Mass Index 16.13 (42.64 kg, 162.56 cm) ar8 13:09 Pain Scale: Adult ar8 ED Course: 13:04 Patient arrived in ED. im 13:09 Anisa Holland PA-C is PHCP. sb4 13:09 Zahida Rodriguez MD is Attending Physician. sb4 13:13 Triage completed. ar8 13:13 Arm band placed on right wrist. ar8 14:02 Thais Crooks, JORDIN is Primary Nurse. kc6 14:32 Patient has correct armband on for positive identification. Bed in low position. Call kc6 light in reach. Side rails up X 1. hospital monitor on. Pulse ox on. NIBP on. Door closed. Noise minimized. Lights dimmed. Warm blanket given. Pillow given. Verbal reassurance given. 14:32 Initial lab(s) drawn, by me, sent to lab. EKG done, by ED staff, reviewed by Anisa Holland PA-C. Inserted saline lock: 20 gauge in right wrist, using aseptic technique. Blood collected. Flushed with 10 mL NS. Patient maintains SpO2 saturation greater than 95% on room air. 15:02 XRAY Chest (1 view) In Process Unspecified. EDMS 15:27 Diet: Patient given snack. Tolerated well. kc6 16:50 No provider procedures requiring assistance completed. IV discontinued, intact, kc6 bleeding controlled, No redness/swelling at site. Pressure dressing applied. Administered Medications: 14:32 Drug: NS 0.9% IV 1000 ml IV at 1 bolus Per protocol; to be given as a bolus over 60 kc6 minutes Route: IV; Rate: 1 bolus; Site: right wrist; 16:50 Follow up: Response: No adverse reaction; IV Status: Completed infusion; IV Intake: kc6 1000ml Medication: 16:50 VIS not applicable for this client. kc6 Intake: 16:50 IV: 1000ml; Total: 1000ml. kc6 Outcome: 15:47 Discharge ordered by . sb4 16:50 Discharged to home ambulatory, kc6 16:50 Condition: good 16:50 Discharge instructions given to patient, Instructed on discharge instructions, follow up and referral plans. Demonstrated understanding of instructions, follow-up care, 16:51 Patient left the ED. kc6 Signatures: Dispatcher [employer] EDWI Thais Crooks RN RN kc6 Anisa Holland, PADeeC PA-C sb4 [place] Andrea RN RN ar8 Corrections: (The following items were deleted from the chart) 15:15 14:15 Respiratory: Airway is patent Trachea midline Respiratory effort is even, kc6 unlabored, Respiratory pattern is regular, symmetrical, kc6
[2024-09-22 23:18] VITALS: TEMP 97.7
[2024-09-22 23:30] VITALS: BP 122/80; O2SAT 100
== END 2024-09-22 16:51 | disposition home or self-care (01) ==
LOC: ER 13:01
DX: R00.2 Palpitations (principal); R53.81 Other malaise; R53.83 Other fatigue; Z11.52 Encounter for screening for COVID-19
CPT/HCPCS: 96361; 93005; 85025; 80048; 36415; 83735; 85610; 85379; 80076; 84443; 84484; 83880; 71045; 96360; 99285; 87428; J7030

== ENCOUNTER 2024-09-27 13:18 | Emergency (ER) | payer OTHER ==
--- OUTSIDE RECORDS SUMMARY | 2024-09-27 13:22 | XMS REPORT | Continuity of Care Document ---
Author Name Unknown Address [address] [facility] [address] [place] [address] [facility] Address [address] [facility] [address] [place] [address] Care Team Providers Care Change Lead Name Role Phone Mine Goldberg Primary Care Physician Lam May MD Attending Clinician JEET WAYNE Attending Clinician Unavailable Josee Pineda Attending Clinician + Terra Archer RN Attending Clinician Unavailab MAKEDA Longo Attending Clinician Unavailable Makeda West MD Attending Clinician [phone] JOSEE BILLY Attending Clinician Unavail able Doctor Unassigned, [place] Attending Clinician U navailable HELENA MELGAR Attending [...] Number Effective Date Expirati on Date Source [facility] DUAL COMP HMO D SNP [id number] 2022 00:00:00 [facility] [place] STAR [place] [id number] 2022 00:00:00 [employer] [place] GOLD PLUS 33 D-SNP OA 7 [id number] 2022 00:00:00 Problems Condition Name Condition Details [...] original. Repeat pap in 1 year 09/2023 [facility] Other depression Other depression Disease Active 08-23 00:00: 00 [facility] Dysautonom ia Dysautonom ia Disease Active 08-23 00:00: 00 [facility] Subclinica l hypothyroi dism Subclinica l hypothyroi dism Disease Active 03-02 00:00: 00 Overview: Formattin g of this note might be different from the original. Dx 01/2013 [facility] Crohn's disease Crohn's disease Disease Active 2012-02 00:00: 00 [facility] Allergies, Adverse Reactions, Alerts Allergy Name Allergy Type Status Severity Reaction(s) Onset Date Inactive Date Treating Clinician Comments Source NO KNOWN ALLERGIE S Drug Class Active [facility] Social History Social Habit Start Date Stop Date Quantity Comments Source Gender identity [facility] History of tobacco use Passive smoker Denisa mariano - External History of Social function 2022-08-23 00:00:00 2022-08-23 00:00:00 [facility] Alcohol Comment 2022-08-23 00:00:00 2022-08-23 00:00:00 1-3 drinks in a span of 3 days, wine/beer [facility] Tobacco use and exposure 2022-05-19 00:00:00 2022-05-19 00:00:00 Smokeless tobacco non-user Denisa Barrientos - External Alcohol intake 2022-05-19 00:00:00 2022-05-19 00:00:00 Lifetime non-drinker (finding) Denisa Barrientos - External Exposure to SARS-CoV-2 (event) 2020-12-28 00:00:00 2021-01-27 14:16:00 Not sure [facility] Alcoholic beverage intake 2020-04-02 00:00:00 2020-04-02 00:00:00 Current non-drinker of alcohol (finding) [facility] Tobacco Comment 2012-09-08 00:00:00 2012-09-08 00:00:00 mom and dad smoke outside house [facility] Sex Assigned At 2001 00:00:00 2000 00:00:00 [...] MCG oral Tablet 05-19 00:00: 00 Yes [id number] 1{tbl} Take 1 tablet by mouth daily Denisa cardenas Carbamide Peroxide 6.5 % otic Solution 05-19 00:00: 00 05-24 04:59 :00 No [id number] 5[drp] Place 5 drops into both ears 2 times daily for 4 days Denisa cardenas Famotidine 40 MG oral Tablet 3-03 00:00: 00 Yes 40mg Take 1 tablet (40 mg total) by mouth daily Denisa Seybold - Externa l levothyroxi ne 25 mcg tablet 2020-02 00:00: 00 Yes [id number] 25ug Take 1 tablet by mouth every morning. [facility] levothyroxi ne 25 mcg tablet - 00:00: 00 02-03 00:00 :00 No [id number] 25ug Take 1 tablet by mouth every morning. [facility] levothyroxi ne 25 mcg tablet -12 00:00: 00 10-17 00:00 :00 No 25ug Take 1 tablet by mouth every morning. [facility] LINZESS 145 mcg capsule 1-19 00:00: 00 Yes [facility] Immunizations Ordered Immunization Name Filled Immunization Name Date Status Comments Source Influenza Virus Vaccine 2012-01-13 00:00:00 Completed [facility] Influenza Virus Vaccine 2012-01-13 00:00:00 Completed [facility] Influenza Virus Vaccine 2012-01-13 00:00:00 Completed [facility] Influenza Virus Vaccine 2012-01-13 00:00:00 Completed [facility] Influenza Virus Vaccine 2012-01-13 00:00:00 Completed [facility] Influenza Virus Vaccine 2012-01-13 00:00:00 Completed [facility] Influenza Virus Vaccine 2012-01-13 00:00:00 Completed [facility] Influenza Virus Vaccine 2012-01-13 00:00:00 Completed Influenza Virus Vaccine 2009-11-07 00:00:00 Completed [facility] Influenza Virus Vaccine 2009-11-07 00:00:00 Completed [facility] Influenza Virus Vaccine 2009-11-07 00:00:00 Completed [facility] Influenza Virus Vaccine 2009-11-07 00:00:00 Completed [facility] Influenza Virus Vaccine 2009-11-07 00:00:00 Completed [facility] Influenza Virus Vaccine 2009-11-07 00:00:00 Completed [facility] Influenza Virus Vaccine 2009-11-07 00:00:00 Completed [facility] Influenza Virus Vaccine 2009-11-07 00:00:00 Completed Influenza Virus Vaccine 2007-11-29 00:00:00 Completed [facility] Influenza Virus Vaccine 2007-11-29 00:00:00 Completed [facility] Influenza Virus Vaccine 2007-11-29 00:00:00 Completed [facility] Influenza Virus Vaccine 2007-11-29 00:00:00 Completed [facility] Influenza Virus Vaccine 2007-11-29 00:00:00 Completed [facility] Influenza Virus Vaccine 2007-11-29 00:00:00 Completed [facility] Influenza Virus Vaccine 2007-11-29 00:00:00 Completed [facility] Influenza Virus Vaccine 2007-11-29 00:00:00 Completed Varicella (varivax)(chicken pox) 2007-05-16 00:00:00 Completed [facility] Varicella (varivax)(chicken pox) 2007-05-16 00:00:00 Completed [facility] Varicella (varivax)(chicken pox) 2007-05-16 00:00:00 Completed [facility] Varicella (varivax)(chicken pox) 2007-05-16 00:00:00 Completed [facility] Varicella (varivax)(chicken pox) 2007-05-16 00:00:00 Completed [facility] Varicella (varivax)(chicken pox) 2007-05-16 00:00:00 Completed [facility] Varicella (varivax)(chicken pox) 2007-05-16 00:00:00 Completed [facility] Varicella (varivax)(chicken pox) 2007-05-16 00:00:00 Completed HEPATITIS A 2006-09-13 00:00:00 Completed [facility] HEPATITIS A 2006-09-13 00:00:00 Completed [facility] HEPATITIS A 2006-09-13 00:00:00 Completed [facility] HEPATITIS A 2006-09-13 00:00:00 Completed [facility] HEPATITIS A 2006-09-13 00:00:00 Completed [facility] HEPATITIS A 2006-09-13 00:00:00 Completed [facility] HEPATITIS A 2006-09-13 00:00:00 Completed [facility] HEPATITIS A 2006-09-13 00:00:00 Completed DTAP 2005-09-30 00:00:00 Completed [facility] MMR 2005-09-30 00:00:00 Completed [facility] Polio (IPV/OPV) 2005-09-30 00:00:00 Completed [facility] DTAP 2005-09-30 00:00:00 Completed [facility] MMR 2005-09-30 00:00:00 Completed [facility] Polio (IPV/OPV) 2005-09-30 00:00:00 Completed [facility] DTAP 2005-09-30 00:00:00 Completed [facility] MMR 2005-09-30 00:00:00 Completed [facility] Polio (IPV/OPV) 2005-09-30 00:00:00 Completed [facility] DTAP 2005-09-30 00:00:00 Completed [facility] MMR 2005-09-30 00:00:00 Completed [facility] Polio (IPV/OPV) 2005-09-30 00:00:00 Completed [facility] DTAP 2005-09-30 00:00:00 Completed [facility] MMR 2005-09-30 00:00:00 Completed [facility] Polio (IPV/OPV) 2005-09-30 00:00:00 Completed [facility] DTAP 2005-09-30 00:00:00 Completed [facility] MMR 2005-09-30 00:00:00 Completed [facility] Polio (IPV/OPV) 2005-09-30 00:00:00 Completed [facility] DTAP 2005-09-30 00:00:00 Completed [facility] MMR 2005-09-30 00:00:00 Completed [facility] Polio (IPV/OPV) 2005-09-30 00:00:00 Completed [facility] DTAP 2005-09-30 00:00:00 Completed MMR 2005-09-30 00:00:00 Completed Polio (IPV/OPV) 2005-09-30 00:00:00 Completed HEPATITIS A 2005-05-27 00:00:00 Completed [facility] HEPATITIS A 2005-05-27 00:00:00 Completed [facility] HEPATITIS A 2005-05-27 00:00:00 Completed [facility] HEPATITIS A 2005-05-27 00:00:00 Completed [facility] HEPATITIS A 2005-05-27 00:00:00 Completed [facility] HEPATITIS A 2005-05-27 00:00:00 Completed [facility] HEPATITIS A 2005-05-27 00:00:00 Completed [facility] HEPATITIS A 2005-05-27 00:00:00 Completed DTAP 2002-11-07 00:00:00 Completed [facility] DTAP 2002-11-07 00:00:00 Completed [facility] DTAP 2002-11-07 00:00:00 Completed [facility] DTAP 2002-11-07 00:00:00 Completed [facility] DTAP 2002-11-07 00:00:00 Completed [facility] DTAP 2002-11-07 00:00:00 Completed [facility] DTAP 2002-11-07 00:00:00 Completed [facility] DTAP 2002-11-07 00:00:00 Completed HIB 4 Dose Schedule 2002-08-07 00:00:00 Completed [facility] MMR 2002-08-07 00:00:00 Completed [facility] Pneumococcal 7 Conjugate, PCV7 (Prevnar7) 2002-08-07 00:00:00 Completed [facility] Varicella (varivax)(chicken pox) 2002-08-07 00:00:00 Completed [facility] HIB 4 Dose Schedule 2002-08-07 00:00:00 Completed [facility] MMR 2002-08-07 00:00:00 Completed [facility] Pneumococcal 7 Conjugate, PCV7 (Prevnar7) 2002-08-07 00:00:00 Completed [facility] Varicella (varivax)(chicken pox) 2002-08-07 00:00:00 Completed [facility] HIB 4 Dose Schedule 2002-08-07 00:00:00 Completed [facility] MMR 2002-08-07 00:00:00 Completed [facility] Pneumococcal 7 Conjugate, PCV7 (Prevnar7) 2002-08-07 00:00:00 Completed [facility] Varicella (varivax)(chicken pox) 2002-08-07 00:00:00 Completed [facility] HIB 4 Dose Schedule 2002-08-07 00:00:00 Completed [facility] MMR 2002-08-07 00:00:00 Completed [facility] Pneumococcal 7 Conjugate, PCV7 (Prevnar7) 2002-08-07 00:00:00 Completed [facility] Varicella (varivax)(chicken pox) 2002-08-07 00:00:00 Completed [facility] HIB 4 Dose Schedule 2002-08-07 00:00:00 Completed [facility] MMR 2002-08-07 00:00:00 Completed [facility] Pneumococcal 7 Conjugate, PCV7 (Prevnar7) 2002-08-07 00:00:00 Completed [facility] Varicella (varivax)(chicken pox) 2002-08-07 00:00:00 Completed [facility] HIB 4 Dose Schedule 2002-08-07 00:00:00 Completed [facility] MMR 2002-08-07 00:00:00 Completed [facility] Pneumococcal 7 Conjugate, PCV7 (Prevnar7) 2002-08-07 00:00:00 Completed [facility] Varicella (varivax)(chicken pox) 2002-08-07 00:00:00 Completed [facility] HIB 4 Dose Schedule 2002-08-07 00:00:00 Completed [facility] MMR 2002-08-07 00:00:00 Completed [facility] Pneumococcal 7 Conjugate, PCV7 (Prevnar7) 2002-08-07 00:00:00 Completed [facility] Varicella (varivax)(chicken pox) 2002-08-07 00:00:00 Completed [facility] HIB 4 Dose Schedule 2002-08-07 00:00:00 Completed MMR 2002-08-07 00:00:00 Completed Pneumococcal 7 Conjugate, PCV7 (Prevnar7) 2002-08-07 00:00:00 Completed Varicella (varivax)(chicken pox) 2002-08-07 00:00:00 Completed Influenza Virus Vaccine 2002-02-27 00:00:00 Completed [facility] Influenza Virus Vaccine 2002-02-27 00:00:00 Completed [facility] DTAP 2002-02-02 00:00:00 Completed [facility] HIB 4 Dose Schedule 2002-02-02 00:00:00 Completed [facility] Hep B, Adol or Pedi Dosage 2002-02-02 00:00:00 Completed [facility] Polio (IPV/OPV) 2002-02-02 00:00:00 Completed [facility] DTAP 2002-02-02 00:00:00 Completed [facility] HIB 4 Dose Schedule 2002-02-02 00:00:00 Completed [facility] Hep B, Adol or Pedi Dosage 2002-02-02 00:00:00 Completed [facility] Polio (IPV/OPV) 2002-02-02 00:00:00 Completed [facility] DTAP 2002-02-02 00:00:00 Completed [facility] HIB 4 Dose Schedule 2002-02-02 00:00:00 Completed [facility] Hep B, Adol or Pedi Dosage 2002-02-02 00:00:00 Completed [facility] Polio (IPV/OPV) 2002-02-02 00:00:00 Completed [facility] DTAP 2002-02-02 00:00:00 Completed [facility] HIB 4 Dose Schedule 2002-02-02 00:00:00 Completed [facility] Hep B, Adol or Pedi Dosage 2002-02-02 00:00:00 Completed [facility] Polio (IPV/OPV) 2002-02-02 00:00:00 Completed [facility] DTAP 2002-02-02 00:00:00 Completed [facility] HIB 4 Dose Schedule 2002-02-02 00:00:00 Completed [facility] Hep B, Adol or Pedi Dosage 2002-02-02 00:00:00 Completed [facility] Polio (IPV/OPV) 2002-02-02 00:00:00 Completed [facility] DTAP 2002-02-02 00:00:00 Completed [facility] HIB 4 Dose Schedule 2002-02-02 00:00:00 Completed [facility] Hep B, Adol or Pedi Dosage 2002-02-02 00:00:00 Completed [facility] Polio (IPV/OPV) 2002-02-02 00:00:00 Completed [facility] DTAP 2002-02-02 00:00:00 Completed [facility] HIB 4 Dose Schedule 2002-02-02 00:00:00 Completed [facility] Hep B, Adol or Pedi Dosage 2002-02-02 00:00:00 Completed [facility] Polio (IPV/OPV) 2002-02-02 00:00:00 Completed [facility] DTAP 2002-02-02 00:00:00 Completed HIB 4 Dose Schedule 2002-02-02 00:00:00 Completed Hep B, Adol or Pedi Dosage 2002-02-02 00:00:00 Completed Polio (IPV/OPV) 2002-02-02 00:00:00 Completed Influenza Virus Vaccine 2002-01-24 00:00:00 Completed [facility] Pneumococcal 7 Conjugate, PCV7 (Prevnar7) 2002-01-24 00:00:00 Completed [facility] Influenza Virus Vaccine 2002-01-24 00:00:00 Completed [facility] Pneumococcal 7 Conjugate, PCV7 (Prevnar7) 2002-01-24 00:00:00 Completed [facility] Hep B, Adol or Pedi Dosage 2001 00:00:00 Completed [facility] Hep B, Adol or Pedi Dosage 2001 00:00:00 Completed [facility] Hep B, Adol or Pedi Dosage 2001 00:00:00 Completed [facility] Hep B, Adol or Pedi Dosage 2001 00:00:00 Completed [facility] Hep B, Adol or Pedi Dosage 2001 00:00:00 Completed [facility] Hep B, Adol or Pedi Dosage 2001 00:00:00 Completed [facility] Hep B, Adol or Pedi Dosage 2001 00:00:00 Completed [facility] Hep B, Adol or Pedi Dosage 2001 00:00:00 Completed DTAP 2001 00:00:00 Completed [facility] HIB 4 Dose Schedule 2001 00:00:00 Completed [facility] Pneumococcal 7 Conjugate, PCV7 (Prevnar7) 2001 00:00:00 Completed [facility] Polio (IPV/OPV) 2001 00:00:00 Completed [facility] DTAP 2001 00:00:00 Completed [facility] HIB 4 Dose Schedule 2001 00:00:00 Completed [facility] Pneumococcal 7 Conjugate, PCV7 (Prevnar7) 2001 00:00:00 Completed [facility] Polio (IPV/OPV) 2001 00:00:00 Completed [facility] DTAP 2001 00:00:00 Completed [facility] HIB 4 Dose Schedule 2001 00:00:00 Completed [facility] Pneumococcal 7 Conjugate, PCV7 (Prevnar7) 2001 00:00:00 Completed [facility] Polio (IPV/OPV) 2001 00:00:00 Completed [facility] DTAP 2001 00:00:00 Completed [facility] HIB 4 Dose Schedule 2001 00:00:00 Completed [facility] Pneumococcal 7 Conjugate, PCV7 (Prevnar7) 2001 00:00:00 Completed [facility] Polio (IPV/OPV) 2001 00:00:00 Completed [facility] DTAP 2001 00:00:00 Completed [facility] HIB 4 Dose Schedule 2001 00:00:00 Completed [facility] Pneumococcal 7 Conjugate, PCV7 (Prevnar7) 2001 00:00:00 Completed [facility] Polio (IPV/OPV) 2001 00:00:00 Completed [facility] DTAP 2001 00:00:00 Completed [facility] HIB 4 Dose Schedule 2001 00:00:00 Completed [facility] Pneumococcal 7 Conjugate, PCV7 (Prevnar7) 2001 00:00:00 Completed [facility] Polio (IPV/OPV) 2001 00:00:00 Completed [facility] DTAP 2001 00:00:00 Completed [facility] HIB 4 Dose Schedule 2001 00:00:00 Completed [facility] Pneumococcal 7 Conjugate, PCV7 (Prevnar7) 2001 00:00:00 Completed [facility] Polio (IPV/OPV) 2001 00:00:00 Completed [facility] DTAP 2001 00:00:00 Completed HIB 4 Dose Schedule 2001 00:00:00 Completed Pneumococcal 7 Conjugate, PCV7 (Prevnar7) 2001 00:00:00 Completed Polio (IPV/OPV) 2001 00:00:00 Completed Hep B, Adol or Pedi Dosage 2001 00:00:00 Completed [facility] Hep B, Adol or Pedi Dosage 2001 00:00:00 Completed [facility] Hep B, Adol or Pedi Dosage 2001 00:00:00 Completed [facility] Hep B, Adol or Pedi Dosage 2001 00:00:00 Completed [facility] Hep B, Adol or Pedi Dosage 2001 00:00:00 Completed [facility] Hep B, Adol or Pedi Dosage 2001 00:00:00 Completed [facility] Hep B, Adol or Pedi Dosage 2001 00:00:00 Completed [facility] Hep B, Adol or Pedi Dosage 2001 00:00:00 Completed HIB 4 Dose Schedule 2001 00:00:00 Completed [facility] Polio (IPV/OPV) 2001 00:00:00 Completed [facility] HIB 4 Dose Schedule 2001 00:00:00 Completed [facility] Polio (IPV/OPV) 2001 00:00:00 Completed [facility] HIB 4 Dose Schedule 2001 00:00:00 Completed [facility] Polio (IPV/OPV) 2001 00:00:00 Completed [facility] HIB 4 Dose Schedule 2001 00:00:00 Completed [facility] Polio (IPV/OPV) 2001 00:00:00 Completed [facility] HIB 4 Dose Schedule 2001 00:00:00 Completed [facility] Polio (IPV/OPV) 2001 00:00:00 Completed [facility] HIB 4 Dose Schedule 2001 00:00:00 Completed [facility] Polio (IPV/OPV) 2001 00:00:00 Completed [facility] HIB 4 Dose Schedule 2001 00:00:00 Completed [facility] Polio (IPV/OPV) 2001 00:00:00 Completed [facility] HIB 4 Dose Schedule 2001 00:00:00 Completed Polio (IPV/OPV) 2001 00:00:00 Completed DTAP 2001 00:00:00 Completed [facility] Pneumococcal 7 Conjugate, PCV7 (Prevnar7) 2001 00:00:00 Completed [facility] DTAP 2001 00:00:00 Completed [facility] Pneumococcal 7 Conjugate, PCV7 (Prevnar7) 2001 00:00:00 Completed [facility] DTAP 2001 00:00:00 Completed [facility] Pneumococcal 7 Conjugate, PCV7 (Prevnar7) 2001 00:00:00 Completed [facility] DTAP 2001 00:00:00 Completed [facility] Pneumococcal 7 Conjugate, PCV7 (Prevnar7) 2001 00:00:00 Completed [facility] DTAP 2001 00:00:00 Completed [facility] Pneumococcal 7 Conjugate, PCV7 (Prevnar7) 2001 00:00:00 Completed [facility] DTAP 2001 00:00:00 Completed [facility] Pneumococcal 7 Conjugate, PCV7 (Prevnar7) 2001 00:00:00 Completed [facility] DTAP 2001 00:00:00 Completed [facility] Pneumococcal 7 Conjugate, PCV7 (Prevnar7) 2001 00:00:00 Completed [facility] DTAP 2001 00:00:00 Completed Pneumococcal 7 Conjugate, PCV7 (Prevnar7) 2001 00:00:00 Completed DTAP Unknown Completed [facility] HIB 4 Dose Schedule Unknown Completed [facility] HEPATITIS A Unknown Completed [facility] Hep B, Adol or Pedi Dosage Unknown Completed [facility] Influenza Virus Vaccine Unknown Completed [facility] MMR Unknown Completed [facility] Pneumococcal 7 Conjugate, PCV7 (Prevnar7) Unknown Completed [facility] Polio (IPV/OPV) Unknown Completed [facility] Varicella (varivax)(chicken pox) Unknown Completed [facility] Vital Signs Vital Name Observation Time Observation Value Comments S ource Systolic blood pressure 2022-08-24 03:07:00 121 mm[Hg] [facility] Diastolic blood pressure 2022-08-24 03:07:00 79 mm[Hg] [facility] Heart rate 2022-08-24 03:07:00 76 /min [facility] Body temperature 2022-08-24 03:07:00 36.5 Isabel [facility] Respiratory rate 2022-08-24 03:07:00 18 /min [facility] Oxygen saturation in Arterial blood by Pulse oximetry 2022-08-24 03:07:00 100 /min [facility] Body height 2022-08-23 21:09:00 162.6 cm [facility] Body weight 2022-08-23 21:09:00 44.906 kg [facility] BMI 2022-08-23 21:09:00 16.99 kg/m2 [facility] Systolic blood pressure 2022-08-23 19:23:00 127 mm[Hg] [facility] Diastolic blood pressure 2022-08-23 19:23:00 90 mm[Hg] [facility] Heart rate 2022-08-23 19:23:00 90 /min [facility] Body temperature 2022-08-23 19:23:00 36.61 Isabel [facility] Respiratory rate 2022-08-23 19:23:00 18 /min [facility] Body height 2022-08-23 19:23:00 162.6 cm [facility] Body weight 2022-08-23 19:23:00 45.269 kg [facility] BMI 2022-08-23 19:23:00 17.13 kg/m2 [facility] Systolic blood pressure 2022-05-19 15:18:00 108 mm[Hg] [...] COMPREHENSIVE DRUG SCREEN 2022-08-23 23:18:00 [facility] URINALYSIS 2022-08-23 22:08:00 [facility] FREE T4 2022-08-23 21:49:00 [facility] COMP. METABOLIC PANEL ([id number]) 2022-08-23 21:49:00 [facility] ETHANOL 2022-08-23 21:49:00 [facility] CBC WITH DIFF 2022-08-23 21:49:00 [facility] COVID-19 (ID NOW RAPID TESTING) 2022-08-23 21:49:00 [facility] NOTICE OF PRIVACY PRACTICES 2022-08-23 21:01:50 Doctor Unassigned, [place] [facility] CONSENT/REFUSAL FOR DIAGNOSIS AND TREATMENT 2022-08-23 21:00:11 Doctor Unassigned, [place] [facility] POCT TEST 2022-08-23 21:00:00 Johnny Billy [facility] PAP SMEAR-LIQUID BASED-CP 2022-08-23 20:56:00 Josee Billy [facility] HIV 1/2 AG-AB WITH REFLEX 2022-08-23 20:42:00 Josee Billy [facility] SYPHILIS IGG/IGM 2022-08-23 20:42:00 Basia Billy [facility] ASSIGNMENT OF BENEFITS 2022-08-23 18:57:19 Docto r Unassigned, [place] [facility] Encounters Start Date/Time End Date/Time Encounter Type Admission Type Attending Clinicians Care Facility Care Department Encounter ID Source 2020-10-10 00:00:00 2024-05-31 21:44:28 Refill Lam May [facility] 1.840.114 350.1.13.10 4.2.7.2.686 [id number] [facility] 2022-10-08 13:00:00 2022-10-08 13:00:00 Outpatient JEET LINARES [facility] [id number] [facility] 2022-09-09 00:00:00 2022-09-09 00:00:00 Telephone Josee Billy [facility] BRID[facility] SAW OPERATOR [facility] 1..840.114 350.1.13.10 4.2.7.2.686 [id number] [facility] 2022-08-30 00:00:00 2022-08-30 00:00:00 Patient Secure Msg Josee Billy [facility] BRID[facility]W [facility]PER[facility] 1..840.114 350.1.13.10 4.2.7.2.686 [id number] [facility] 2022-08-24 00:00:00 2022-08-24 00:00:00 Letter (Out) [facility] 1.2840.114 350.1.13.10 4.2.7.2.686 [id number] [facility] 2022-08-23 16:10:00 2022-08-23 22:15:00 Emergency X MAKEDA [facility] ERT [id number] [facility] 2022-08-23 16:10:00 2022-08-23 22:15:00 Emergency Brett Makeda [facility] 1.2840.114 350.1.13.10 4.2.7.2.686 [id number] [facility] 2022-08-23 14:30:00 2022-08-23 15:42:04 Outpatient R JOSEE BILLY [facility] [id number] [facility] 2022-08-23 14:30:00 2022-08-23 15:42:04 Office Visit Josee Billy [facility] BR[facility] 1.2840.114 350.1.13.10 4.2.7.2.686 [id number] [facility] 2022-08-23 00:00:00 2022-08-23 00:00:00 Orders Only Doctor Unassigned, [place] [facility] 1.2840.114 350.1.13.10 4.2.7.2.686 [id number] [facility] 2022-08-13 11:00:00 2022-08-13 11:00:00 Outpatient HELENA MELGAR [id number] [facility] 2022 00:00:00 2022 00:00:00 Outpatient DENISA MORTENSEN [id number] [facility] 2022-07-19 00:00:00 2022-07-19 00:00:00 Outpatient HELENA MELGAR [id number] [facility] 2022-07-01 00:00:00 2022-07-01 00:00:00 Outpatient DENISA MORTENSEN [id number] [facility] 2022-06-17 00:00:00 2022-06-17 00:00:00 Outpatient BHANU CRUZ DENISA MORTENSEN [id number] [facility] 2022-05-20 00:00:00 2022-05-20 00:00:00 Outpatient RAMÓN HELENA DENISA MORTENSEN [id number] [facility] 2022-05-19 11:00:00 2022-05-19 11:00:00 Outpatient DANNY59 DENISA MORTENSEN [id number] [facility] 2022-05-19 10:15:00 2022-05-19 10:15:00 Outpatient RAMÓN HELENACHRISTINE MORTENSEN [id number] [facility] 2022-05-19 00:00:00 2022-05-19 00:00:00 Outpatient RAMÓN HELENACHRISTINE MORTENSEN [id number] [facility] 2022-05-11 11:00:00 2022-05-11 11:00:00 Outpatient RAMÓNHELENA RICHARDSON DENISA MORTENSEN [id number] [facility] 2022-05-10 13:30:00 2022-05-10 13:30:00 Outpatient RAMÓN HELENA DENISA MORTENSEN [id number] [facility] 2021-09-15 00:00:00 2021-09-15 00:00:00 Refvilma May [facility] 1.2.840.114 350.1.13.10 4.2.7.2.686 [id number] [facility] 2021-07-29 11:30:00 2021-07-29 11:30:00 Outpatient Alena MAY [facility] [id number] [facility] 2021-02-03 00:00:00 2021-02-03 00:00:00 Refvilma May [facility] 1..840.114 350.1.13.10 4.2.7.2.686 [id number] [facility] 2021-01-27 15:00:00 2021-01-27 15:15:00 Senior Project Architect Visit Lab, Ang - Db Yadira [facility] RAFY?[facility] 1..840.114 350.1.13.10 4.2.7.2.686 [id number] [facility] 2021-01-27 15:00:00 2021-01-27 15:01:02 Outpatient R YADIRA [facility] [id number] [facility] 2021-01-27 15:00:00 2021-01-27 15:01:02 Outpatient R YADIRA [facility] [id number] [facility] 2021-01-27 14:00:00 2021-01-27 14:53:42 Office Visit Yadira [facility] RAFY?[facility] 1..840.114 350.1.13.10 4.2.7.2.686 [id number] [facility] 2020-11-14 11:30:00 2020-11-14 11:30:00 Outpatient R KELLY VARGAS [facility] [id number] [facility] 2020-10-15 13:30:00 2020-10-15 13:30:00 Outpatient R MAY [facility] [id number] [facility] 2020-10-15 00:00:00 2020-10-15 00:00:00 Refill Yadira [facility] Rafy?[facility] 1..840.114 350.1.13.10 4.2.7.2.686 [id number] [facility] 2020-04-18 00:00:00 2020-04-18 00:00:00 Telephone Yadira [facility] 1.2.840.114 350.1.13.10 4.2.7.2.686 [id number] [facility] 2020-04-09 00:00:00 2020-04-09 00:00:00 Orders Only Doctor Unassigned, [place] [facility] 1.2.840.114 350.1.13.10 4.2.7.2.686 [id number] [facility] 2020-04-02 14:29:36 2020-04-02 14:44:36 Senior Project Architect Visit 2, Adc Lab Yadira [facility] 1.2.840.114 350.1.13.10 4.2.7.2.686 [id number] [facility] 2020-04-02 13:23:51 2020-04-02 14:21:49 Office Visit Yadira [facility] 1.2.840.114 350.1.13.10 4.2.7.2.686 [id number] [facility] 2020-04-02 13:23:51 2020-04-02 14:21:49 Office Visit Yadira [facility] 1.2.840.114 350.1.13.10 4.2.7.2.686 [id number] 2020-04-02 13:30:00 2020-04-02 13:30:00 Outpatient R YADIRA [facility] [id number] [facility] 2020-02-28 09:18:00 2020-02-28 23:59:00 Outpatient EDMOND CHUN [facility] [id number] [facility] 2020-02-22 09:00:00 2020-02-22 15:43:00 Outpatient EDMOND CHUN [facility] [id number] [facility] 2020-01-17 10:37:00 2020-01-17 23:59:00 Outpatient EDMOND CHUN [facility] [id number] [facility] Results Test Description Test Time Test Comments Results Result Co mments [id number] 22:42:51* Test Item Value Reference Range Interpretation Comme nts FREE T4 (test code = 7543052379) 0.92 See_Comment [Automated [employer] ge] The system which generated this result transmitted reference range: 0.78 - 2.20 ng/dL:. The reference range was not used to interpret this result as normal/abnormal. 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 METABOLIC PANEL ([id number])2022-08-23 22:26:30* Test Item Value Reference Range Interpretation Comme nts NA (test code = 2927896871) 140 mmol/L 135-145 K (test code = 6652341716) 4.2 mmol/L 3.5-5.0 CL (test code = 4256789053) 103 mmol/L 98-108 CO2 TOTAL (test code = 3885212635) 26 mmol/L 23-31 AGAP (test code = 3336216332) 11 2-16 BUN (test code = 4480771002) 12 mg/dL 7-23 GLUCOSE (test code = 0845062092) 114 mg/dL 70-110 H CREATININE (test code = 7375986868) 0.64 mg/dL 0.50-1.04 TOTAL BILI (test code = 0720941255) 0.6 mg/dL 0.1-1.1 CALCIUM (test code = 3142351732) 9.7 mg/dL 8.6-10.6 T PROTEIN (test code = 6764283072) 8.4 g/dL 6.3-8.2 H ALBUMIN (test code = 5716550373) 5.0 g/dL 3.5-5.0 ALK PHOS (test code = 8699063581) 44 U/L 34-122 ALTv (test code = 1742-6) 20 U/L 5-35 AST(SGOT) (test code = 6119593355) 25 U/L 13-40 eGFR (test code = 3355832677) 117.1 mL/min/1.73m2 THERESE (test code = THERESE) [...] imaging tests). Lab Interpretation (test code = 80025-8) Abnormal [facility] [id number] 21:00:00* Test Item Value Reference Range Interpretation Comme [facility] POCT PREG (test code = 1605) Positive On board controls acceptable with C Line (test code = 3574) Yes POCT PREG LOT # (test code = 3575) POCT PREG TEST DATE ( test code = 3576) [facility] [id number] 21:00:00* Test Item Value Reference Range Interpretation Comme [facility] POCT PREG (test code = 1605) Positive On board controls acceptable with C Line (test code = 3574) Yes POCT PREG LOT # (test code = 3575) POCT PREG TEST DATE ( test code = 3576) [facility] Notes Date/Time Note Provider Source 2022-09-10 13:24:20 Formatting of this n ote might be different from the original. Patient informed of results, verbalized understanding. Viktoriya Ramos EMBROIDERY SPECIALIST [facility] 2022-09-10 09:29:10 Formatting of this n ote might be different from the original. Attempted to call patient, no answer, left vm. Viktoriya Ramos EMBROIDERY SPECIALIST [facility] 2022-09-09 16:40:08 Formatting of this n ote might be different from the original. Please advise patient of pap results ASCUS pap per ASCCP guidelines she will need repeat pap in 1 year CARMELLA Zarate 09/09/2022 4:40 PM [facility] 2020-10-14 12:22:18 Patient is scheduled with Dr May/[facility] on Tuesday-10/15/2020 at 1:30pm. Jayda Clark [facility] 2020-10-14 11:38:13 JEFF: 04/02/2020 NOV: NONE scheduled Refill denied, needs office visit. Johnnie Arzate RN [facility]"
--- NOTE | 2024-09-27 14:49 | EDPHYS ---
Physician Documentation [facility] Name: Selena To Age: 24 yrs Sex: Female : 2000 Arrival Date: 09/27/2024 Time: 13:18 Bed IW4 Private MD: ED Physician Oliver Gutierrez HPI: 09/27 14:31 This 24 yrs old Female presents to ER via EMS with complaints of Weakness. sb4 14:31 Patient presents today with several issues. She states that she has dysautonomia, sb4 hypothyroidism, and is blind in her left eye. She states that they are in their in the bed that because of all these issues she struggles with malnutrition. She states that she has poor access to food and when she does try to eat she feels badly and is unable to actually eat. She is working with her primary care to get into an inpatient treatment for nutrition. She states that she had a syncopal episode today while trying to walk to her appointment. Historical: - Allergies: 13:30 No Known Drug Allergies; me1 - PMHx: 13:30 Dysautonomia; Crohn's; Blind - Left Eye; IRON DEFICIENCY ANEMIA; Hypothyroidism; me1 - PSHx: 13:30 strabismus sx; me1 - Immunization history:: Adult Immunizations unknown. - Infectious Disease History:: Denies. - Social history:: Smoking status: Reported history of juuling and/or vaping. ROS: 14:31 Cardiovascular: Negative for chest pain, palpitations, and edema, sb4 14:31 Constitutional: Positive for poor PO intake, 14:31 All other systems are negative, Exam: 14:31 Head/Face: Normocephalic, atraumatic. Eyes: Extra-ocular motions intact. Periorbital sb4 areas with no swelling, redness, or edema. ENT: Mucous membranes moist. Cardiovascular: Regular rate and rhythm with a normal S1 and S2. Respiratory: No increased work of breathing, no retractions or nasal flaring. Abdomen/GI: Soft, non-tender, no distension. Skin: Warm, dry with normal turgor. Normal color with no rashes, no lesions, and no evidence of cellulitis. 14:31 Constitutional: The patient appears in no acute distress, alert, awake, frail, Vital Signs: 13:26 BP 118 / 85; Pulse 104; Resp 17; Temp 98.2; Pulse Ox 99% ; Weight 42.64 kg; Height 5 me1 ft. 4 in. ; 13:26 Body Mass Index 16.14 (42.64 kg, 162.56 cm) me1 MDM: 13:22 Medical Screening Exam initiated sb4 14:59 Data reviewed: vital signs, nurses notes, EMS record, and as a result, I will discharge sb4 patient. Care significantly affected by the following Social Determinants of Health: Problems related to primary support group. Counseling: I had a detailed discussion with the patient and/or guardian regarding the historical points, exam findings, and any diagnostic results supporting the discharge/admit diagnosis, the need for outpatient follow up, for definitive care, to return to the emergency department if symptoms worsen or persist or if there are any questions or concerns that arise at home. ED course: I discussed at length with patient that unfortunately there is only so much we are able to do for her in the emergency department. She had a full workup done 5 days ago that revealed no abnormalities. She is underweight but is not malnourished. Her volume status was adequate and her albumin was within normal limits. Case management talk to her about options and we did provide her with community resources. Was present and she does have a home to go to. Will safely discharge home at this time. 09/27 14:06 Order name: PO challenge; Complete Time: 14:59 sb4 Administered Medications: No medications were administered Disposition: 09/28 09:05 Co-signature as Attending Physician, Oliver Gutierrez MD I agree with the assessment and samuel plan of care. Disposition Summary: 09/27/24 14:48 Discharge Ordered Notes: Location: Home sb4 Problem: an ongoing problem sb4 Symptoms: are unchanged sb4 Condition: Stable sb4 Diagnosis - Weakness sb4 Followup: sb4 - With: Brent Joy MD - When: As needed - Reason: Recheck today's complaints, Re-evaluation by your physician Discharge Instructions: - Discharge Summary Sheet sb4 - Weakness sb4 - Deconditioning sb4 Forms: - Patient Portal Instructions sb4 - Leadership Thank You Letter sb4 Signatures: Oliver Gutierrez MD MD cha Brown, Sophia, PA-C PA-C sb4 Terrie Marrufo RN RN me1
--- NOTE | 2024-09-27 14:49 | ER ---
Nurse's Notes [facility] Name: Selena To Age: 24 yrs Sex: Female : 2000 Arrival Date: 09/27/2024 Time: 13:18 Bed IW4 Private MD: Diagnosis: Weakness Presentation: 09/27 13:24 Chief complaint: Chief complaint: EMS states: toned out for lightheadedness, me1 malnourished, dehydrated. BGL 145. When she eats she has MARTINEZ, SOB that doesn't resolve with rest, Abdominal pain and chest pain. 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 13:26 Coronavirus screen: At this time, the client does not indicate any symptoms associated me1 with coronavirus-19. Ebola Screen: No symptoms or risks identified at this time. Initial Sepsis Screen: Does the patient meet any 2 criteria? No. Patient's initial sepsis screen is negative. Does the patient have a suspected source of infection? No. Patient's initial sepsis screen is negative. Risk Assessment: Do you want to hurt yourself or someone else? Patient reports no desire to harm self or others. Onset of symptoms is unknown. 13:26 Method Of Arrival: EMS: [facility] nv1 13:26 Acuity: BETTINA 3 me1 Triage Assessment: 13:30 General: Appears in no apparent distress. slender, well groomed, well developed, me1 Behavior is cooperative, appropriate for age, anxious. 13:46 Pain: Denies pain. EENT: No signs and/or symptoms were reported regarding the EENT nv1 system. Neuro: Level of Consciousness is awake, alert, obeys commands, Oriented to person, place, time, situation, Appropriate for age. Cardiovascular: Reports chest pain, shortness of breath, Patient's skin is warm and dry. Respiratory: Reports shortness of breath at rest on exertion that is worse after eating Airway is patent Respiratory effort is even, unlabored, Respiratory pattern is regular, symmetrical. GI: Reports lower abdominal pain, upper abdominal pain. : No signs and/or symptoms were reported regarding the genitourinary system. Derm: Skin is intact, is healthy with good turgor, Skin is normal. Musculoskeletal: Circulation, motion, and sensation intact. Range of motion: intact in all extremities, Reports generalized weakness. Historical: - Allergies: 13:30 No Known Drug Allergies; me1 - PMHx: 13:30 Dysautonomia; Crohn's; Blind - Left Eye; IRON DEFICIENCY ANEMIA; Hypothyroidism; me1 - PSHx: 13:30 strabismus sx; me1 - Immunization history:: Adult Immunizations unknown. - Infectious Disease History:: Denies. - Social history:: Smoking status: Reported history of juuling and/or vaping. Screenin:59 Abuse screen: Denies threats or abuse. Denies injuries from another. Nutritional ss screening: No deficits noted. Tuberculosis screening: Never had TB. Assessment: 14:59 General: Appears in no apparent distress. comfortable, Behavior is calm, cooperative. ss Pain: Denies pain. Neuro: Level of Consciousness is awake, alert, obeys commands, Oriented to person, place, time, situation. Respiratory: Respiratory effort is even, unlabored, Respiratory pattern is regular, symmetrical. Derm: Skin is intact, is healthy with good turgor, Skin is dry. 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 ss Vital Signs: 13:26 BP 118 / 85; Pulse 104; Resp 17; Temp 98.2; Pulse Ox 99% ; Weight 42.64 kg; Height 5 me1 ft. 4 in. ; 13:26 Body Mass Index 16.14 (42.64 kg, 162.56 cm) nv1 ED Course: 13:21 Patient arrived in ED. mr 13:21 Anisa Holland [facility] sb4 13:21 Oliver Gutierrez MD is Attending Physician. sb4 13:30 Triage completed. me1 13:30 Arm band placed on Patient placed in waiting room. me1 14:48 Brent Joy MD is Referral Physician. sb4 14:59 Mary Lynn, JORDIN is Primary Nurse. ss 14:59 Patient has correct armband on for positive identification. ss 14:59 No provider procedures requiring assistance completed. Patient did not have IV access ss during this emergency room visit. Administered Medications: No medications were administered Medication: 14:59 VIS not applicable for this client. ss Outcome: 14:48 Discharge ordered by . sb4 14:59 Discharged to home ambulatory, ss 14:59 Condition: good 14:59 Discharge instructions given to patient, Instructed on discharge instructions, follow up and referral plans. Demonstrated understanding of instructions, follow-up care, 15:01 Patient left the ED. Signatures: Salma Campbell, Speedy Reg mr ShaneMary, RN RN ss Anisa Holland, PA-C PA-C sb4 Terrie Marrufo, RN RN me1 Corrections: (The following items were deleted from the chart) 13:30 13:24 Chief complaint: me1 me1 13:44 13:26 BP 125 / 80; Pulse 74bpm; Resp 17bpm; Pulse Ox 99%; Temp 98.2F; 42.64 kg; Height me1 5 ft. 4 in.; BMI: 16.1; me1 13:46 13:24 Chief complaint: EMS states: toned out for lightheadedness, malnourished, me1 dehydrated. BGL 145. Reports CP, MARTINEZ, SOB when she tries to eat. Chief complaint: EMS states: toned out for lightheadedness, malnourished, dehydrated. BGL 145. Reports CP, MARTINEZ, SOB when she tries to eat. me1 13:48 13:30 General: Appears in no apparent distress. slender, well groomed, well developed, me1 Behavior is cooperative, appropriate for age, anxious, me1
[2024-09-27 16:23] VITALS: BP 118/85; TEMP 98.2; O2SAT 99
== END 2024-09-27 15:01 | disposition home or self-care (01) ==
LOC: ER 13:18
DX: R53.1 Weakness (principal); G90.1 Familial dysautonomia [Riley-Day]; D50.9 Iron deficiency anemia, unspecified; F17.290 Nicotine dependence, other tobacco product, uncomplicated
CPT/HCPCS: 99283